=== PATIENT | male | born 1975 | race Asian ===

== ENCOUNTER 2018-01-01 12:11 | Inpatient (IN) | payer BC, OTHER, SELFPAY ==
[~2018-01-01] VITALS: Ht 180.3 cm; Wt 80.7 kg
[2018-01-01] MEDS ORDERED: Lidocaine 2% Visc 15ml soln ORAL ONE (12:45)
[2018-01-01] MEDS ORDERED: Mylanta II UD 30ml ORAL ONE (12:45)
[2018-01-01] MEDS ORDERED: NORCO 5-325 TA1 EACH ORAL (12:59)
[2018-01-01] MEDS ORDERED: OMEPRAZOLE40 M1 ORAL (12:59)
[2018-01-01] MEDS ORDERED: Morphine Sulfate 4mg/ml Inj IVP ONE (13:00)
--- NOTE | 2018-01-01 13:00 | Emergency Room Report ---
History of Present Illness General Chief Complaint: Abdominal Pain Source: Patient Present Illness HPI The patient states he has a history of gallstones and GERD. He states that around 5 AM this morning he woke up suddenly with severe right upper quadrant abdominal pain. He states that he has never had symptoms this severe. He does note that over the past month he has had intermittent "gallbladder attacks." He describes these episodes as right upper quadrant pain that is crampy and lasts for about a week but occurs intermittently. He states this has been constant since 5 AM this morning. He also feels nauseated. He denies vomiting. He denies fever or chills. He denies chest pain or shortness of breath. He has no other complaints. Allergies: Coded Allergies: No Known Allergies (Unverified , 03/28/14) Patient History Past Medical History: see triage record, GERD, other - cholelithiasis Social History: Denies: smoking, alcohol use, drug use Reviewed Nursing Documentation: PMH: Agreed; PSxH: Agreed Nursing Documentation-PMH Past Medical History: No History, Except For Hx Gastrointestinal Problems: Yes - gallstones, stomache ulcer Review of Systems All Other Systems: negative except mentioned in HPI Physical Exam Vital Signs Date Time Temp Pulse Resp B/P (MAP) Pulse Ox O2 Delivery O2 Flow Rate FiO2 01/01/18 12:15 97.5 75 19 155/98 98 Room Air 97.5 Sp02 EP Interpretation: reviewed, normal General Appearance: no apparent distress, alert, GCS 15, non-toxic Head: normocephalic, atraumatic Eyes: bilateral eye normal inspection, bilateral eye PERRL ENT: hearing grossly normal, normal pharynx, no angioedema, normal voice Neck: full range of motion, supple/symm/no masses Respiratory: chest non-tender, lungs clear, normal breath sounds, speaking full sentences Cardiovascular #1: regular rate, rhythm, no edema Gastrointestinal: normal bowel sounds, soft, non-distended, no guarding, no rebound, tenderness - TTP in the RUQ Rectal: deferred Musculoskeletal: back normal, gait/station normal, normal range of motion, non- tender Neurologic: alert, oriented x3, responsive, motor strength/tone normal, sensory intact, speech normal Psychiatric: judgement/insight normal, memory normal, mood/affect normal, no suicidal/homicidal ideation Skin: normal color, no rash, warm/dry, well hydrated Medical Decision Making Diagnostic Impression: Primary Impression: Biliary colic Additional Impression: Transaminitis ER Course This patient presents with biliary colic. The patient underwent ultrasound of the right upper quadrant is found to have a large gallstone. He was in severe pain on arrival and very uncomfortable. His laboratory workup identified a transaminitis. I am concerned he could have choledocholithiasis. Possibly, he could have had a temporary obstructed common bile duct that has since cleared, however, given the transaminitis and cholelithiasis and colicky pain I'm concerned that this condition could worsen and he could develop a cholangitis or cholecystitis. At this time, there is no biliary dilation or evidence of cholecystitis. Regardless, the patient will be admitted for further evaluation by gastroenterology and general surgery. Laboratory Tests Test 01/01/18 12:30 01/01/18 14:10 White Blood Count 8.2 K/UL (4.8-10.8) Red Blood Count 5.38 M/UL (4.70-6.10) Hemoglobin 16.7 G/DL (14.2-18.0) Hematocrit 50.6 % (42.0-52.0) Mean Corpuscular Volume 94 FL (80-99) Mean Corpuscular Hemoglobin 31.0 PG (27.0-31.0) Mean Corpuscular Hemoglobin Concent 32.9 G/DL (32.0-36.0) Red Cell Distribution Width 11.2 % (11.6-14.8) L Platelet Count 261 K/UL (150-450) Mean Platelet Volume 7.7 FL (6.5-10.1) Neutrophils (%) (Auto) 62.3 % (45.0-75.0) Lymphocytes (%) (Auto) 22.1 % (20.0-45.0) Monocytes (%) (Auto) 9.4 % (1.0-10.0) Eosinophils (%) (Auto) 5.0 % (0.0-3.0) H Basophils (%) (Auto) 1.3 % (0.0-2.0) Sodium Level 140 MMOL/L (136-145) Potassium Level 3.8 MMOL/L (3.5-5.1) Chloride Level 103 MMOL/L (98-107) Carbon Dioxide Level 25 MMOL/L (21-32) Anion Gap 12 mmol/L (5-15) Blood Urea Nitrogen 14 mg/dL (7-18) Creatinine 1.0 MG/DL (0.55-1.30) Estimate Glomerular Filtration Rate > 60 mL/min (>60) Glucose Level 114 MG/DL (74-106) H Calcium Level 9.4 MG/DL (8.5-10.1) Total Bilirubin 1.3 MG/DL (0.2-1.0) H Direct Bilirubin 0.5 MG/DL (0.0-0.3) H Aspartate Amino Transferase (AST) 203 U/L (15-37) H Alanine Aminotransferase (ALT) 207 U/L (12-78) H Alkaline Phosphatase 156 U/L (46-116) H Total Protein 8.2 G/DL (6.4-8.2) Albumin 4.1 G/DL (3.4-5.0) Globulin 4.1 g/dL Albumin/Globulin Ratio 1.0 (1.0-2.7) Lipase 347 U/L (73-393) Urine Color Yellow Urine Appearance Clear Urine pH 6 (4.5-8.0) Urine Specific [place] 1.010 (1.005-1.035) Urine Protein Negative (NEGATIVE) Urine Glucose (UA) Negative (NEGATIVE) Urine Ketones Negative (NEGATIVE) Urine Occult Blood Negative (NEGATIVE) Urine Nitrite Negative (NEGATIVE) Urine Bilirubin Negative (NEGATIVE) Urine Urobilinogen Normal MG/DL (0.0-1.0) Urine Leukocyte Esterase Negative (NEGATIVE) CT/MRI/US Diagnostic Results CT/MRI/US Diagnostic Results : Imaging Test Ordered: RUQ US Impression Prominent gallstone noted. Sonographic Leblanc's is negative. No wall thickening or pericholecystic fluid identified. CBD is 6.6 mm. The liver, demonstrated part of the pancreas, aorta and IVC, both kidneys, spleen appear unremarkable. There is no biliary ductal dilatation identified. Doppler evaluation of the main portal vein shows patency. There is no ascites. No hydronephrosis seen. Impression: Cholelithiasis Last Vital Signs Date Time Temp Pulse Resp B/P (MAP) Pulse Ox O2 Delivery O2 Flow Rate FiO2 01/01/18 12:15 97.5 75 19 155/98 98 Room Air 97.5 Disposition: ADMITTED INPATIENT Condition: Stable COLIANNO,ZAMZAM M D.O. January 01, 2018 13:00
[2018-01-01 13:08] LABS: BASOPHILS % (AUTO) 1.3 % (0.0-2.0); HEMATOCRIT 50.6 % (42.0-52.0); HEMOGLOBIN 16.7 G/DL (14.2-18.0); LYMPHOCYTES % (AUTO) 22.1 % (20.0-45.0); MEAN CORPUSCULAR VOLUME 94 FL (80-99); MONOCYTES % (AUTO) 9.4 % (1.0-10.0); NEUTROPHILS % (AUTO) 62.3 % (45.0-75.0); PLATELET COUNT 261 K/UL (150-450); RED BLOOD COUNT 5.38 M/UL (4.70-6.10); RED CELL DISTRIBUTION WIDTH 11.2 % (11.6-14.8); WHITE BLOOD COUNT 8.2 K/UL (4.8-10.8)
[2018-01-01 13:17] LABS: ANION GAP 12 mmol/L (5-15); BLOOD UREA NITROGEN 14 mg/dL (7-18); CALCIUM 9.4 MG/DL (8.5-10.1); CARBON DIOXIDE 25 MMOL/L (21-32); CHLORIDE 103 MMOL/L (98-107); POTASSIUM 3.8 MMOL/L (3.5-5.1); SODIUM 140 MMOL/L (136-145)
[2018-01-01 13:28] LABS: ALANINE AMINOTRANSFERASE 207 U/L (12-78); ALBUMIN 4.1 G/DL (3.4-5.0); ALKALINE PHOSPHATASE 156 U/L (46-116); ASPARTATE AMINO TRANSFERASE 203 U/L (15-37); BILIRUBIN,TOTAL 1.3 MG/DL (0.2-1.0)
[2018-01-01 13:30] LABS: BILIRUBIN,DIRECT 0.5 MG/DL (0.0-0.3)
[2018-01-01 14:00] VITALS: BP 117/71
--- NOTE | 2018-01-01 14:18 | Diagnostic Imaging Report ---
Indication:Abdominal pain Technique: Grayscale and duplex Doppler imaging of the abdomen performed. Comparison: None Findings: Prominent gallstone noted. Sonographic Leblanc's is negative. No wall thickening or pericholecystic fluid identified. CBD is 6.6 mm. The liver, demonstrated part of the pancreas, aorta and IVC, both kidneys, spleen appear unremarkable. There is no biliary ductal dilatation identified. Doppler evaluation of the main portal vein shows patency. There is no ascites. No hydronephrosis seen. Impression: Cholelithiasis
[2018-01-01 14:34] LABS: APPEARANCE,URINE CLEAR; BILIRUBIN, URINE NEGATIVE (NEGATIVE); GLUCOSE, URINE (UA) NEGATIVE (NEGATIVE); KETONES,URINE NEGATIVE (NEGATIVE); LEUKOCYTE ESTERASE ,URINE NEGATIVE (NEGATIVE); NITRITE,URINE NEGATIVE (NEGATIVE); PH,URINE 6 (4.5-8.0); PROTEIN,URINE NEGATIVE (NEGATIVE); UROBILINOGEN,URINE NORMAL MG/DL (0.0-1.0)
[2018-01-01 14:41] LABS: COLOR,URINE YELLOW
[2018-01-01 16:30] VITALS: BP 127/73
[2018-01-01] MEDS ORDERED: HYDROcodone/Acetamin 10/325 tab ORAL PRN (18:00)
[2018-01-01] MEDS ORDERED: Norco 5mg/325mg tab ORAL PRN (18:00)
[2018-01-01 20:00] VITALS: BP 122/71
--- NOTE | 2018-01-01 23:25 | History and Physical ---
History of Present Illness General Date patient seen: January 01, 2018 Time patient seen: 15:23 Reason for Hospitalization: Abdominal Pain Present Illness HPI 42 y/o male with a PMH of cholelithiasis presented to the ED for severe RUQ pain since this morning. He states that pain started suddenly and reports associated nausea but no emesis. Reports RUQ pain radiating to the back, intermittent in nature, and with a sharp sensation. In the ED, abdominal ultrasound was done which showed cholelithiasis but no CBD or obstruction. Patient's LFTs were also noted to be elevated. Per patient, he was diagnosed with cholelithiasis several years ago and has ever since had intermittent RUQ pain. He states that he did a home remedy with epsom salts to pass the gallstones on its own. He also states that had basic labwork done with his PCP several months ago and his LFTs were within normal limits at the time. Patient was also noted to have a HR of 50s. States that he does not know his baseline HR but does report that he used to exercise a great deal. Denies chest pain, sob , f/c, d/c.Denies alcohol or illicit drug use. Denies tobacco abuse. Allergies: Coded Allergies: No Known Allergies (Unverified , 03/28/14) Medication History Scheduled Omeprazole (Omeprazole), 40 MG ORAL DAILY, (Reported) Scheduled PRN Hydrocodone Bit/Acetaminophen 5-325* ([place] 5-325*), 1 TAB ORAL Q6H PRN for For Pain, (Reported) Patient History History Provided By: Patient Healthcare decision maker N Resuscitation status Full Code Advanced Directive on File Review of Systems All Other Systems: negative except mentioned in HPI Physical Exam General Appearance: alert, mild distress HEENT: normocephalic, atraumatic, PERRL, EOMI, no JVD Neck: non-tender, normal alignment, supple Respiratory/Chest: chest wall non-tender, lungs clear, normal breath sounds Cardiovascular/Chest: normal peripheral pulses, regular rhythm, bradycardia Abdomen: normal bowel sounds, soft, tender Extremities: normal range of motion, non-tender Skin Exam: normal pigmentation, warm/dry 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, no motor/sensory deficits, alert, oriented x 3 Last 24 Hour Vital Signs Date Time Temp Pulse Resp B/P (MAP) Pulse Ox O2 Delivery O2 Flow Rate FiO2 5/11/18 16:30 97.3 51 20 127/73 97 Room Air 97.3 01/01/18 16:00 53 16 115/62 98 Room Air 01/01/18 14:00 69 12 117/71 98 Room Air 01/01/18 13:36 97.5 01/01/18 13:04 97.5 01/01/18 12:15 97.5 75 19 155/98 98 Room Air 97.5 Laboratory Tests Test 01/01/18 12:30 01/01/18 14:10 White Blood Count 8.2 K/UL (4.8-10.8) Red Blood Count 5.38 M/UL (4.70-6.10) Hemoglobin 16.7 G/DL (14.2-18.0) Hematocrit 50.6 % (42.0-52.0) Mean Corpuscular Volume 94 FL (80-99) Mean Corpuscular Hemoglobin 31.0 PG (27.0-31.0) Mean Corpuscular Hemoglobin Concent 32.9 G/DL (32.0-36.0) Red Cell Distribution Width 11.2 % (11.6-14.8) L Platelet Count 261 K/UL (150-450) Mean Platelet Volume 7.7 FL (6.5-10.1) Neutrophils (%) (Auto) 62.3 % (45.0-75.0) Lymphocytes (%) (Auto) 22.1 % (20.0-45.0) Monocytes (%) (Auto) 9.4 % (1.0-10.0) Eosinophils (%) (Auto) 5.0 % (0.0-3.0) H Basophils (%) (Auto) 1.3 % (0.0-2.0) Sodium Level 140 MMOL/L (136-145) Potassium Level 3.8 MMOL/L (3.5-5.1) Chloride Level 103 MMOL/L (98-107) Carbon Dioxide Level 25 MMOL/L (21-32) Anion Gap 12 mmol/L (5-15) Blood Urea Nitrogen 14 mg/dL (7-18) Creatinine 1.0 MG/DL (0.55-1.30) Estimat Glomerular Filtration Rate > 60 mL/min (>60) Glucose Level 114 MG/DL (74-106) H Calcium Level 9.4 MG/DL (8.5-10.1) Total Bilirubin 1.3 MG/DL (0.2-1.0) H Direct Bilirubin 0.5 MG/DL (0.0-0.3) H Aspartate Amino Transf (AST/SGOT) 203 U/L (15-37) H Alanine Aminotransferase (ALT/SGPT) 207 U/L (12-78) H Alkaline Phosphatase 156 U/L (46-116) H Total Protein 8.2 G/DL (6.4-8.2) Albumin 4.1 G/DL (3.4-5.0) Globulin 4.1 g/dL Albumin/Globulin Ratio 1.0 (1.0-2.7) Lipase 347 U/L (73-393) Urine Color Yellow Urine Appearance Clear Urine pH 6 (4.5-8.0) Urine Specific [place] 1.010 (1.005-1.035) Urine Protein Negative (NEGATIVE) Urine Glucose (UA) Negative (NEGATIVE) Urine Ketones Negative (NEGATIVE) Urine Occult Blood Negative (NEGATIVE) Urine Nitrite Negative (NEGATIVE) Urine Bilirubin Negative (NEGATIVE) Urine Urobilinogen Normal MG/DL (0.0-1.0) Urine Leukocyte Esterase Negative (NEGATIVE) Height (Feet): 5 Height (Inches): 11.00 Weight (Pounds): 178 Medications Current Medications Medications (Trade) Dose Ordered Sig/Kyung Route PRN Reason Start Time Stop Time Status Last Admin Dose Admin Acetaminophen (Tylenol) 650 mg Q4H PRN ORAL Mild Pain/Temp > 100.5 01/01/18 18:00 01/31/18 17:59 Acetaminophen/ Hydrocodone Bitart ([place] 10/325) 1 tab Q4H PRN ORAL Severe Pain (Pain Scale 7-10) 01/01/18 18:00 01/08/18 17:59 Acetaminophen/ Hydrocodone Bitart ([place] 5/325) 1 tab Q4H PRN ORAL Moderate Pain (Pain Scale 4-6) 01/01/18 18:00 01/08/18 17:59 Ondansetron HCl (Zofran) 4 mg Q4H PRN IVP Nausea & Vomiting 01/01/18 18:00 01/31/18 17:59 Sodium Chloride 1,000 ml @ 75 mls/hr [id number] IV 5/11/18 18:00 01/31/18 17:59 01/01/18 18:19 Assessment/Plan Problem List: (1) Bradycardia ICD Codes: R00.1 - Bradycardia, unspecified SNOMED: 63800115 (2) Transaminitis ICD Codes: R74.0 - Nonspecific elevation of levels of transaminase and lactic acid dehydrogenase [LDH] SNOMED: 847801749, 150655951 (3) Cholelithiasis ICD Codes: K80.20 - Calculus of gallbladder without cholecystitis without obstruction SNOMED: 882879216 Status: stable Assessment/Plan - Admit to inpatient, transfer to tele given bradycardia - General surgery and GI consulted - check EKG - trend LFTs. check hepatitis panel - consider HIDA - CLD - IVF - pain control and supportive care - no abx at this time given no e/o cholecystitis DVT Prophylaxis: SCD Code Status: Full Hospital Classification Declaration: Based on this initial evaluation, and depending on the patient's clinical course, I anticipate that this patient will require hospitalization for 2-3 days for possible sx and close respiratory/ hemodynamic monitoring. Disposition: Once the patient is stable to leave the hospital, I anticipate the patient will likely be discharged to the following environment: home I spent 73 minutes on this patient's case, and 45 minutes were dedicated to counseling and/or care coordination. Discussed with patient/family, nursing staff, SW/CM, general surgery, and GI regarding clinical status, treatment course, and disposition planning. Time of note may not reflect time of encounter. Alannah Gamez NP January 01, 2018 23:25
[2018-01-02] VITALS: BP 116/66
[2018-01-02] MEDS ORDERED: Norco 5mg/325mg tab ORAL PRN (02:00)
[2018-01-02] MEDS ORDERED: HYDROcodone/Acetamin 10/325 tab ORAL PRN (02:00)
[2018-01-02 04:00] VITALS: BP 108/65
[2018-01-02 08:00] VITALS: BP 127/73
[2018-01-02 09:15] LABS: BASOPHILS % (AUTO) 1.5 % (0.0-2.0); EOSINOPHILS % (AUTO) 7.2 % (0.0-3.0); HEMATOCRIT 46.1 % (42.0-52.0); HEMOGLOBIN 15.4 G/DL (14.2-18.0); LYMPHOCYTES % (AUTO) 28.9 % (20.0-45.0); MEAN CORPUSCULAR VOLUME 95 FL (80-99); MONOCYTES % (AUTO) 12.1 % (1.0-10.0); NEUTROPHILS % (AUTO) 50.3 % (45.0-75.0); PLATELET COUNT 220 K/UL (150-450); RED BLOOD COUNT 4.85 M/UL (4.70-6.10); RED CELL DISTRIBUTION WIDTH 11.4 % (11.6-14.8)
--- NOTE | 2018-01-02 09:39 | Consultation ---
History of Present Illness General Date patient seen: January 02, 2018 Chief Complaint: Abdominal Pain Reason for Consultation: biliary colic Present Illness HPI 42 year old otherwise healthy male presented with acute worsening RUQ abdominal discomfort. States that he was first diagnosed with cholelithiasis 4 years ago after acute attack but was well for some time. recently began to have intermittent mild episodes with diet. yesterday had worsening pain and required ED evaluation given severity. states pain sharp/cramping epigastric RUQ pain with radiation to right upper pack. +nausea. no emesis. no fever or chills. since admission was given IV pain meds and improved. on admission noted to have elevated LFT's. ultrasound with cholelithiasis. Surgery called to evaluate. patient seen, chart reviewed, patient examined. Allergies: Coded Allergies: No Known Allergies (Unverified , 03/28/14) Medication History Scheduled Omeprazole (Omeprazole), 40 MG ORAL DAILY, (Reported) Scheduled PRN Hydrocodone Bit/Acetaminophen 5-325* ([place] 5-325*), 1 TAB ORAL Q6H PRN for For Pain, (Reported) Patient History History Provided By: Patient, Medical Record, PMD Healthcare decision maker N Resuscitation status Full Code Advanced Directive on File Past Medical/Surgical History Past Medical/Surgical History: (1) Acute alcoholic intoxication (2) Acute alcoholic intoxication (3) Transaminitis (4) Biliary colic (5) Cholelithiasis (6) Bradycardia Review of Systems All Other Systems: negative except mentioned in HPI Physical Exam General Appearance: no apparent distress, alert Lines, tubes and drains: peripheral HEENT: normocephalic, atraumatic, anicteric, mucous membranes moist, PERRL Neck: normal alignment, supple Respiratory/Chest: lungs clear, normal breath sounds, no respiratory distress, no accessory muscle use Cardiovascular/Chest: normal peripheral pulses, normal rate Abdomen: normal bowel sounds, non tender, soft, no organomegaly, no mass Extremities: normal range of motion, non-tender Skin Exam: normal pigmentation, warm/dry Neurologic: alert, oriented x 3 Last 24 Hour Vital Signs Date Time Temp Pulse Resp B/P (MAP) Pulse Ox O2 Delivery O2 Flow Rate FiO2 01/02/18 08:00 97.1 60 20 127/73 98 97.1 01/02/18 04:00 48 01/02/18 04:00 97.2 50 16 108/65 98 97.2 01/02/18 00:00 97.7 56 18 116/66 98 97.7 01/02/18 00:00 46 01/01/18 20:00 59 01/01/18 20:00 97.5 53 18 122/71 99 97.5 01/01/18 16:30 97.3 51 20 127/73 97 Room Air 97.3 01/01/18 16:00 53 16 115/62 98 Room Air 01/01/18 14:00 69 12 117/71 98 Room Air 01/01/18 13:36 97.5 01/01/18 13:04 97.5 01/01/18 12:15 97.5 75 19 155/98 98 Room Air 97.5 Intake and Output 01/01/18 01/02/18 19:00 07:00 Intake Total 1370 ml 240 ml Balance 1370 ml 240 ml Intake Oral 370 ml 240 ml IV Total 1000 ml # Voids 1 Laboratory Tests Test 01/01/18 12:30 01/01/18 14:10 01/02/18 08:25 White Blood Count 8.2 K/UL (4.8-10.8) 5.0 K/UL (4.8-10.8) Red Blood Count 5.38 M/UL (4.70-6.10) 4.85 M/UL (4.70-6.10) Hemoglobin 16.7 G/DL (14.2-18.0) 15.4 G/DL (14.2-18.0) Hematocrit 50.6 % (42.0-52.0) 46.1 % (42.0-52.0) Mean Corpuscular Volume 94 FL (80-99) 95 FL (80-99) Mean Corpuscular Hemoglobin 31.0 PG (27.0-31.0) 31.8 PG (27.0-31.0) H Mean Corpuscular Hemoglobin Concent 32.9 G/DL (32.0-36.0) 33.5 G/DL (32.0-36.0) Red Cell Distribution Width 11.2 % (11.6-14.8) L 11.4 % (11.6-14.8) L Platelet Count 261 K/UL (150-450) 220 K/UL (150-450) Mean Platelet Volume 7.7 FL (6.5-10.1) 7.3 FL (6.5-10.1) Neutrophils (%) (Auto) 62.3 % (45.0-75.0) 50.3 % (45.0-75.0) Lymphocytes (%) (Auto) 22.1 % (20.0-45.0) 28.9 % (20.0-45.0) Monocytes (%) (Auto) 9.4 % (1.0-10.0) 12.1 % (1.0-10.0) H Eosinophils (%) (Auto) 5.0 % (0.0-3.0) H 7.2 % (0.0-3.0) H Basophils (%) (Auto) 1.3 % (0.0-2.0) 1.5 % (0.0-2.0) Sodium Level 140 MMOL/L (136-145) Pending Potassium Level 3.8 MMOL/L (3.5-5.1) Pending Chloride Level 103 MMOL/L (98-107) Pending Carbon Dioxide Level 25 MMOL/L (21-32) Pending Anion Gap 12 mmol/L (5-15) Blood Urea Nitrogen 14 mg/dL (7-18) Pending Creatinine 1.0 MG/DL (0.55-1.30) Pending Estimat Glomerular Filtration Rate > 60 mL/min (>60) Pending Glucose Level 114 MG/DL (74-106) H Pending Calcium Level 9.4 MG/DL (8.5-10.1) Pending Total Bilirubin 1.3 MG/DL (0.2-1.0) H Pending Direct Bilirubin 0.5 MG/DL (0.0-0.3) H Aspartate Amino Transf (AST/SGOT) 203 U/L (15-37) H Pending Alanine Aminotransferase (ALT/SGPT) 207 U/L (12-78) H Pending Alkaline Phosphatase 156 U/L (46-116) H Pending Total Protein 8.2 G/DL (6.4-8.2) Pending Albumin 4.1 G/DL (3.4-5.0) Pending Globulin 4.1 g/dL Pending Albumin/Globulin Ratio 1.0 (1.0-2.7) Lipase 347 U/L (73-393) Urine Color Yellow Urine Appearance Clear Urine pH 6 (4.5-8.0) Urine Specific [place] 1.010 (1.005-1.035) Urine Protein Negative (NEGATIVE) Urine Glucose (UA) Negative (NEGATIVE) Urine Ketones Negative (NEGATIVE) Urine Occult Blood Negative (NEGATIVE) Urine Nitrite Negative (NEGATIVE) Urine Bilirubin Negative (NEGATIVE) Urine Urobilinogen Normal MG/DL (0.0-1.0) Urine Leukocyte Esterase Negative (NEGATIVE) Hepatitis A IgM Antibody Pending Hepatitis B Surface Antigen Pending Hepatitis B Core IgM Antibody Pending Hepatitis C Antibody Pending Height (Feet): 5 Height (Inches): 11.00 Weight (Pounds): 178 Medications Current Medications Medications (Trade) Dose Ordered Sig/Kyung Route PRN Reason Start Time Stop Time Status Last Admin Dose Admin Acetaminophen (Tylenol) 650 mg Q4H PRN ORAL Mild Pain/Temp > 100.5 01/02/18 02:00 01/31/18 17:59 Acetaminophen/ Hydrocodone Bitart ([place] 10/325) 1 tab Q4H PRN ORAL Severe Pain (Pain Scale 7-10) 01/02/18 02:00 01/08/18 17:59 Acetaminophen/ Hydrocodone Bitart ([place] 5/325) 1 tab Q4H PRN ORAL Moderate Pain (Pain Scale 4-6) 01/02/18 02:00 01/08/18 17:59 Ondansetron HCl (Zofran) 4 mg Q4H PRN IVP Nausea & Vomiting 01/02/18 02:00 01/31/18 17:59 Sodium Chloride 1,000 ml @ 75 mls/hr [id number] IV 01/01/18 23:30 01/31/18 17:59 01/02/18 00:26 Temazepam (Restoril) 7.5 mg HSPRN PRN ORAL Insomnia 01/01/18 23:45 01/08/18 23:44 01/02/18 00:25 Assessment/Plan Problem List: (1) Biliary colic Assessment & Plan: 42M biliary colic / symptomatic cholelithiasis. resolved since admission. afebrile, HD stable, exam improved. no n/v/f/c. states that he has been having more require attacks over the past few weeks and feels as if he has attack with each meal. -should have cholecystectomy soon. can be done elective is stable. -advance diet -if asymptomatic with diet can d/c home today -states he will follow up with PCP brie to have referral to surgeon so that he can schedule elective surgery soon -thank you for this consultation. ICD Codes: K80.50 - Calculus of bile duct without cholangitis or cholecystitis without obstruction SNOMED: 82799467, [id number] Status: stable Isma Poon January 02, 2018 09:39
[2018-01-02 09:47] LABS: ALANINE AMINOTRANSFERASE 508 U/L (12-78); ALBUMIN 3.5 G/DL (3.4-5.0); ALBUMIN/GLOBULIN RATIO 0.9 (1.0-2.7); ALKALINE PHOSPHATASE 170 U/L (46-116); ANION GAP 8 mmol/L (5-15); ASPARTATE AMINO TRANSFERASE 350 U/L (15-37); BILIRUBIN,TOTAL 2.5 MG/DL (0.2-1.0); BLOOD UREA NITROGEN 8 mg/dL (7-18); CALCIUM 8.8 MG/DL (8.5-10.1); CARBON DIOXIDE 29 MMOL/L (21-32); CHLORIDE 106 MMOL/L (98-107); CREATININE 0.9 MG/DL (0.55-1.30); POTASSIUM 3.6 MMOL/L (3.5-5.1); SODIUM 143 MMOL/L (136-145)
[2018-01-02 09:50] LABS: BILIRUBIN,DIRECT 0.9 MG/DL (0.0-0.3)
--- NOTE | 2018-01-02 10:17 | General Progress Note ---
Progress Note Progress Note Surgery: AM labs resulted. LFT's and t bili elevated. -NPO -IV fluids -IV Abx -MRCP to evaluate for choledocholithiasis -repeat AM labs -not ready for discharge as previously believed. had episode of biliary colic vs acute cholecystitis and exam improved but possibly choledocholithiasis now. Isma Poon January 02, 2018 10:17
--- NOTE | 2018-01-02 11:33 | General Progress Note ---
Assessment/Plan Status: stable Assessment/Plan Problem List: (1) Bradycardia with junctional rhythm ICD Codes: R00.1 - Bradycardia, unspecified SNOMED: 55507102 (2) Transaminitis ICD Codes: R74.0 - Nonspecific elevation of levels of transaminase and lactic acid dehydrogenase [LDH] SNOMED: 276516539, 795958706 (3) Cholelithiasis ICD Codes: K80.20 - Calculus of gallbladder without cholecystitis without obstruction - General surgery and GI consulted - check MRCP given rising LFTs - trend LFTs. check hepatitis panel - CLD, ADAT - IVF - pain control and supportive care - no abx at this time given no e/o cholecystitis DVT Prophylaxis: SCD Code Status: Full Hospital Classification Declaration: Based on this initial evaluation, and depending on the patient's clinical course, I anticipate that this patient will require hospitalization for 1-2 days for possible sx and close respiratory/ hemodynamic monitoring. Disposition: Once the patient is stable to leave the hospital, I anticipate the patient will likely be discharged to the following environment: home I spent 42 minutes on this patient's case, and 45 minutes were dedicated to counseling and/or care coordination. Discussed with patient/family, nursing staff, SW/CM, general surgery, and GI regarding clinical status, treatment course, and disposition planning. Time of note may not reflect time of encounter. Subjective Date patient seen: January 02, 2018 Time patient seen: 11:33 ROS Limited/Unobtainable: No Constitutional: Reports: no symptoms HEENT: Reports: no symptoms Cardiovascular: Reports: no symptoms Gastrointestinal/Abdominal: Reports: abdominal pain, nausea Genitourinary: Reports: no symptoms Neurologic/Psychiatric: Reports: no symptoms Endocrine: Reports: no symptoms Hematologic/Lymphatic: Reports: no symptoms Allergies: Coded Allergies: No Known Allergies (Unverified , 03/28/14) Subjective No acute o/n events Pain controlled. Some nausea but no emesis. Denies f/c, d/c, chest pain, SOB Objective Last 24 Hour Vital Signs Date Time Temp Pulse Resp B/P (MAP) Pulse Ox O2 Delivery O2 Flow Rate FiO2 01/02/18 08:00 97.1 60 20 127/73 98 97.1 01/02/18 04:00 48 01/02/18 04:00 97.2 50 16 108/65 98 97.2 01/02/18 00:00 97.7 56 18 116/66 98 97.7 01/02/18 00:00 46 01/01/18 20:00 59 01/01/18 20:00 97.5 53 18 122/71 99 97.5 01/01/18 16:30 97.3 51 20 127/73 97 Room Air 97.3 01/01/18 16:00 53 16 115/62 98 Room Air 01/01/18 14:00 69 12 117/71 98 Room Air 01/01/18 13:36 97.5 01/01/18 13:04 97.5 01/01/18 12:15 97.5 75 19 155/98 98 Room Air 97.5 Intake and Output 01/01/18 01/02/18 19:00 07:00 Intake Total 1370 ml 240 ml Balance 1370 ml 240 ml Intake Oral 370 ml 240 ml IV Total 1000 ml # Voids 1 Laboratory Tests 01/01/18 12:30: White Blood Count 8.2, Red Blood Count 5.38, Hemoglobin 16.7, Hematocrit 50.6, Mean Corpuscular Volume 94, Mean Corpuscular Hemoglobin 31.0, Mean Corpuscular Hemoglobin Concent 32.9, Red Cell Distribution Width 11.2L, Platelet Count 261, Mean Platelet Volume 7.7, Neutrophils (%) (Auto) 62.3, Lymphocytes (%) (Auto) 22.1, Monocytes (%) (Auto) 9.4, Eosinophils (%) (Auto) 5.0H, Basophils (%) (Auto ) 1.3, Sodium Level 140, Potassium Level 3.8, Chloride Level 103, Carbon Dioxide Level 25, Anion Gap 12, Blood Urea Nitrogen 14, Creatinine 1.0, Estimat Glomerular Filtration Rate > 60, Glucose Level 114H, Calcium Level 9.4, Total Bilirubin 1.3H, Direct Bilirubin 0.5H, Aspartate Amino Transf (AST/SGOT) 203H, Alanine Aminotransferase (ALT/SGPT) 207H, Alkaline Phosphatase 156H, Total Protein 8.2, Albumin 4.1, Globulin 4.1, Albumin/Globulin Ratio 1.0, Lipase 347 01/01/18 14:10: Urine Color Yellow, Urine Appearance Clear, Urine pH 6, Urine Specific [place] 1.010, Urine Protein Negative, Urine Glucose (UA) Negative, Urine Ketones Negative, Urine Occult Blood Negative, Urine Nitrite Negative, Urine Bilirubin Negative, Urine Urobilinogen Normal, Urine Leukocyte Esterase Negative 01/02/18 08:25: White Blood Count 5.0, Red Blood Count 4.85, Hemoglobin 15.4, Hematocrit 46.1, Mean Corpuscular Volume 95, Mean Corpuscular Hemoglobin 31.8H, Mean Corpuscular Hemoglobin Concent 33.5, Red Cell Distribution Width 11.4L, Platelet Count 220, Mean Platelet Volume 7.3, Neutrophils (%) (Auto) 50.3, Lymphocytes (%) (Auto) 28.9, Monocytes (%) (Auto) 12.1H, Eosinophils (%) (Auto) 7.2H, Basophils (%) ( Auto) 1.5, Sodium Level 143, Potassium Level 3.6, Chloride Level 106, Carbon Dioxide Level 29, Anion Gap 8, Blood Urea Nitrogen 8, Creatinine 0.9, Estimat Glomerular Filtration Rate > 60, Glucose Level 97, Calcium Level 8.8, Total Bilirubin 2.5H, Direct Bilirubin 0.9H, Aspartate Amino Transf (AST/SGOT) 350H, Alanine Aminotransferase (ALT/SGPT) 508H, Alkaline Phosphatase 170H, Total Protein 7.3, Albumin 3.5, Globulin 3.8, Albumin/Globulin Ratio 0.9L, Hepatitis A IgM Antibody [Pending], Hepatitis B Surface Antigen [Pending], Hepatitis B Core IgM Antibody [Pending], Hepatitis C Antibody [Pending] Height (Feet): 5 Height (Inches): 11.00 Weight (Pounds): 178 Objective General: alert, cooperative, no distress, appears stated age Head: normocephalic, without obvious abnormality, atraumatic Eyes: conjunctivae/corneas clear. PERRL, EOM's intact Throat: lips, mucosa, and tongue normal. MMM Neck: supple, symmetrical, trachea midline, and no JVD Lungs: clear to auscultation bilaterally Heart: regular rate and rhythm, S1, S2 normal, no murmur, click, rub or gallop Abdomen: soft, non-tender, non-distended, bowel sounds normal Extremities: extremities normal, atraumatic, no cyanosis or edema Pulses: 2+ and symmetric Skin: skin color, texture, turgor normal; no rashes or lesions Neurologic: grossly normal, no focal deficits Jez Gaspar M.D. January 02, 2018 11:33
[2018-01-02 12:00] VITALS: BP 129/75
--- NOTE | 2018-01-02 14:12 | Cardiac Electrophysiology PN ---
Subjective Subjective [id number] Objective Last 24 Hour Vital Signs Date Time Temp Pulse Resp B/P (MAP) Pulse Ox O2 Delivery O2 Flow Rate FiO2 01/02/18 12:00 97.8 53 20 129/75 98 97.8 01/02/18 08:00 97.1 60 20 127/73 98 97.1 01/02/18 04:00 48 01/02/18 04:00 97.2 50 16 108/65 98 97.2 01/02/18 00:00 97.7 56 18 116/66 98 97.7 01/02/18 00:00 46 01/01/18 20:00 59 01/01/18 20:00 97.5 53 18 122/71 99 97.5 01/01/18 16:30 97.3 51 20 127/73 97 Room Air 97.3 01/01/18 16:00 53 16 115/62 98 Room Air Intake and Output 01/01/18 01/02/18 19:00 07:00 Intake Total 1370 ml 240 ml Balance 1370 ml 240 ml Intake Oral 370 ml 240 ml IV Total 1000 ml # Voids 1 Laboratory Tests Test 01/02/18 08:25 White Blood Count 5.0 K/UL (4.8-10.8) Red Blood Count 4.85 M/UL (4.70-6.10) Hemoglobin 15.4 G/DL (14.2-18.0) Hematocrit 46.1 % (42.0-52.0) Mean Corpuscular Volume 95 FL (80-99) Mean Corpuscular Hemoglobin 31.8 PG (27.0-31.0) H Mean Corpuscular Hemoglobin Concent 33.5 G/DL (32.0-36.0) Red Cell Distribution Width 11.4 % (11.6-14.8) L Platelet Count 220 K/UL (150-450) Mean Platelet Volume 7.3 FL (6.5-10.1) Neutrophils (%) (Auto) 50.3 % (45.0-75.0) Lymphocytes (%) (Auto) 28.9 % (20.0-45.0) Monocytes (%) (Auto) 12.1 % (1.0-10.0) H Eosinophils (%) (Auto) 7.2 % (0.0-3.0) H Basophils (%) (Auto) 1.5 % (0.0-2.0) Sodium Level 143 MMOL/L (136-145) Potassium Level 3.6 MMOL/L (3.5-5.1) Chloride Level 106 MMOL/L (98-107) Carbon Dioxide Level 29 MMOL/L (21-32) Anion Gap 8 mmol/L (5-15) Blood Urea Nitrogen 8 mg/dL (7-18) Creatinine 0.9 MG/DL (0.55-1.30) Estimat Glomerular Filtration Rate > 60 mL/min (>60) Glucose Level 97 MG/DL (74-106) Calcium Level 8.8 MG/DL (8.5-10.1) Total Bilirubin 2.5 MG/DL (0.2-1.0) H Direct Bilirubin 0.9 MG/DL (0.0-0.3) H Aspartate Amino Transf (AST/SGOT) 350 U/L (15-37) H Alanine Aminotransferase (ALT/SGPT) 508 U/L (12-78) H Alkaline Phosphatase 170 U/L (46-116) H Total Protein 7.3 G/DL (6.4-8.2) Albumin 3.5 G/DL (3.4-5.0) Globulin 3.8 g/dL Albumin/Globulin Ratio 0.9 (1.0-2.7) L Hepatitis A IgM Antibody Pending Hepatitis B Surface Antigen Pending Hepatitis B Core IgM Antibody Pending Hepatitis C Antibody Pending uLis Solitario MD January 02, 2018 14:12
[2018-01-02 16:00] VITALS: BP 122/75
--- NOTE | 2018-01-02 16:55 | Cardiology Report ---
APPROVED REPORT EXAM: Two-dimensional and M-mode echocardiogram with Doppler and color Doppler. INDICATION Bradycardia M-Mode DIMENSIONS IVSd0.9 (0.7-1.1cm)Left Atrium (MM)3.8 (1.6-4.0cm) LVDd5.3 (3.5-5.6cm)Aortic Root2.8 (2.0-3.7cm) PWd1.0 (0.7-1.1cm)Aortic Cusp Exc.2.0 (1.5-2.0cm) LVDs3.9 (2.5-4.0cm) PWs1.3 cm Normal left ventricular chamber size, systolic function and wall motion. Left ventricular ejection fraction estimated to be 50-55%. No evidence of left ventricular hypertrophy. Small posterior pericardial effusion. Right cardiac chamber sizes are within normal limits. Mild left atrial enlargement by 2D. Focal aortic valve sclerosis with adequate cusp excursion. Thickened mitral valve leaflets with normal excursion. Mild mitral annulus and aortic root calcification. Pulmonic valve not well visualized. Normal tricuspid valve structure. IVC is normal in size and collapsible with respiration. A color flow and spectral Doppler study was performed and revealed: No aortic regurgitation. No mitral regurgitation. Normal mitral diastolic function. No tricuspid regurgitation.
[2018-01-02 20:00] VITALS: BP 132/74
--- NOTE | 2018-01-02 22:00 | Consultation ---
DATE OF CONSULTATION: 01/02/2018 CARDIOLOGY CONSULTATION CONSULTING PHYSICIAN: Luis Solitario M.D. REFERRING PHYSICIAN: Dandre Regan M.D. REASON FOR CONSULTATION: Bradycardia and junctional rhythm. HISTORY OF PRESENT ILLNESS: The patient is a 42-year-old gentleman with history of cholelithiasis, presented to the emergency room with severe right lower quadrant pain that has been going on for some time, but got worse in the last two to three days. The patient also was nauseous, but did not vomit. The pain radiated to his back and was intermittent. In the emergency room, ultrasound showed cholelithiasis, but no common bile duct obstruction. The patient's liver function tests were also elevated. The patient noted to be bradycardic with heart rates 40 in junctional rhythm. At that time, the patient was sleeping. The patient denies any syncope or presyncope. He says that he used to exercise a lot, but has not done in the last year due to his back pain. REVIEW OF SYSTEMS: His review of systems was negative other than what was mentioned in the history of present illness. PAST MEDICAL HISTORY: 1. Cholelithiasis. 2. History of back pain. MEDICATIONS AT HOME: Omeprazole and hydrocodone. PHYSICAL EXAMINATION: VITAL SIGNS: Blood pressure is 129/75, pulse is 53, respirations 18, and he is afebrile. HEAD AND NECK: Showed no JVD or carotid bruits. LUNGS: Clear. CARDIOVASCULAR: Shows regular S1 and S2 with no gallop or murmur. ABDOMEN: Soft. EXTREMITIES: No pitting edema. LABORATORY AND DIAGNOSTIC DATA: His telemetry strip showed junctional rhythm at a rate of 40 at 06:53 a.m. His 12-lead EKG showed sinus bradycardia, rate of 56. His labs showed white count of 5, hemoglobin 15.4 , hematocrit 46.1, and platelet count of 220. Sodium is 142, potassium 3.3, BUN of 8, creatinine 0.9, and glucose of 97. His AST and ALT increased from 203 to 350 and from 207 to 508. Alkaline phosphatase increased to 170. Total bilirubin increased to 2.5. ASSESSMENT AND PLAN: 1. Transient junctional rhythm and bradycardia. The patient is off of any sinus or AV kavita blocking agent. This could be due to being vagal due to abdominal pain due to cholecystitis. We will watch the patient on telemetry. The patient is off of any sinus or AV kavita agents. I will check a thyroid function test and echocardiogram as well. 2. Increased liver function tests and total bilirubin. The patient is NPO. MRCP is ordered to evaluate for cholelithiasis. Further evaluation by Dr. Poon from Surgery [facility] GI. Thank you very much, Dr. Regan, for allowing me to participate in the care of this patient. Please do not hesitate to contact me for any questions regarding my evaluation. Luis Solitario M.D. DR: MIGUEL A JOB#: [id number] CC:
[2018-01-03] VITALS: BP 140/76
[2018-01-03] MEDS ORDERED: Zolpidem 5mg tab ORAL PRN (00:45)
[2018-01-03 04:00] VITALS: BP 128/83
[2018-01-03 08:00] VITALS: BP 126/77
[2018-01-03 09:08] LABS: BASOPHILS % (AUTO) 1.1 % (0.0-2.0); EOSINOPHILS % (AUTO) 6.2 % (0.0-3.0); HEMATOCRIT 44.6 % (42.0-52.0); LYMPHOCYTES % (AUTO) 25.1 % (20.0-45.0); MEAN CORPUSCULAR VOLUME 95 FL (80-99); MONOCYTES % (AUTO) 7.8 % (1.0-10.0); NEUTROPHILS % (AUTO) 59.9 % (45.0-75.0); PLATELET COUNT 242 K/UL (150-450); RED BLOOD COUNT 4.71 M/UL (4.70-6.10); RED CELL DISTRIBUTION WIDTH 11.3 % (11.6-14.8); WHITE BLOOD COUNT 8.3 K/UL (4.8-10.8)
[2018-01-03 09:55] LABS: ALANINE AMINOTRANSFERASE 345 U/L (12-78); ALBUMIN 3.4 G/DL (3.4-5.0); ALBUMIN/GLOBULIN RATIO 0.9 (1.0-2.7); ALKALINE PHOSPHATASE 162 U/L (46-116); ANION GAP 10 mmol/L (5-15); ASPARTATE AMINO TRANSFERASE 116 U/L (15-37); BILIRUBIN,TOTAL 0.6 MG/DL (0.2-1.0); BLOOD UREA NITROGEN 13 mg/dL (7-18); CALCIUM 8.8 MG/DL (8.5-10.1); CARBON DIOXIDE 25 MMOL/L (21-32); CHLORIDE 105 MMOL/L (98-107); POTASSIUM 3.4 MMOL/L (3.5-5.1); SODIUM 140 MMOL/L (136-145)
[2018-01-03 12:00] VITALS: BP 123/79
--- NOTE | 2018-01-03 13:16 | General Surgery Progress Note ---
General Surgery-Progress Note Subjective Symptoms: improved, pain absent, tolerating diet, passing flatus, BM Additional Comments no acute events. comfortable. no n/v/f/c. tolerating diet. ambulatory. no pain. labs much improved. Objective Last 24 Hour Vital Signs Date Time Temp Pulse Resp B/P (MAP) Pulse Ox O2 Delivery O2 Flow Rate FiO2 01/03/18 12:00 97.9 55 18 123/79 98 Room Air 97.9 01/03/18 12:00 57 01/03/18 08:00 99.2 63 18 126/77 94 Room Air 99.2 01/03/18 08:00 61 01/03/18 04:00 97.2 66 18 128/83 97 Room Air 97.2 01/03/18 04:00 54 01/03/18 00:00 54 01/03/18 00:00 97.9 57 18 140/76 96 Room Air 97.9 01/02/18 20:00 98.4 59 20 132/74 94 Room Air 98.4 01/02/18 20:00 58 01/02/18 16:00 97.8 52 20 122/75 97 97.8 01/02/18 16:00 51 I&O Intake and Output 01/02/18 01/03/18 19:00 07:00 Intake Total 675 ml 985 ml Balance 675 ml 985 ml Intake Oral 240 ml IV Total 675 ml 745 ml # Voids 2 # Bowel Movements 1 Drains: none Cardiovascular: RSR Respiratory: clear Abdomen: soft, flat, non-tender, present bowel sounds Extremities: no edema, no tenderness, no cyanosis Laboratory Tests Test 01/03/18 08:30 White Blood Count 8.3 K/UL (4.8-10.8) # Red Blood Count 4.71 M/UL (4.70-6.10) Hemoglobin 15.0 G/DL (14.2-18.0) Hematocrit 44.6 % (42.0-52.0) Mean Corpuscular Volume 95 FL (80-99) Mean Corpuscular Hemoglobin 31.8 PG (27.0-31.0) H Mean Corpuscular Hemoglobin Concent 33.6 G/DL (32.0-36.0) Red Cell Distribution Width 11.3 % (11.6-14.8) L Platelet Count 242 K/UL (150-450) Mean Platelet Volume 7.8 FL (6.5-10.1) Neutrophils (%) (Auto) 59.9 % (45.0-75.0) Lymphocytes (%) (Auto) 25.1 % (20.0-45.0) Monocytes (%) (Auto) 7.8 % (1.0-10.0) Eosinophils (%) (Auto) 6.2 % (0.0-3.0) H Basophils (%) (Auto) 1.1 % (0.0-2.0) Sodium Level 140 MMOL/L (136-145) Potassium Level 3.4 MMOL/L (3.5-5.1) L Chloride Level 105 MMOL/L (98-107) Carbon Dioxide Level 25 MMOL/L (21-32) Anion Gap 10 mmol/L (5-15) Blood Urea Nitrogen 13 mg/dL (7-18) Creatinine 1.0 MG/DL (0.55-1.30) Estimat Glomerular Filtration Rate > 60 mL/min (>60) Glucose Level 125 MG/DL (74-106) H Calcium Level 8.8 MG/DL (8.5-10.1) Total Bilirubin 0.6 MG/DL (0.2-1.0) Aspartate Amino Transf (AST/SGOT) 116 U/L (15-37) H Alanine Aminotransferase (ALT/SGPT) 345 U/L (12-78) H Alkaline Phosphatase 162 U/L (46-116) H Total Protein 7.1 G/DL (6.4-8.2) Albumin 3.4 G/DL (3.4-5.0) Globulin 3.7 g/dL Albumin/Globulin Ratio 0.9 (1.0-2.7) L Amylase Level 91 U/L (25-115) Lipase 340 U/L (73-393) Thyroid Stimulating Hormone (TSH) 1.942 uiU/mL (0.358-3.740) Free Thyroxine 1.18 NG/DL (0.76-1.46) Plan Problems: (1) Biliary colic Assessment & Plan: 42M biliary colic / symptomatic cholelithiasis. resolved since admission. afebrile, HD stable, exam improved. no n/v/f/c. states that he has been having more require attacks over the past few weeks and feels as if he has attack with each meal. labs worsened yesterday and possible choledocholithiasis. MRCP ordered but cannot be done on weekend. fortunately today labs much improved. possible passing of stone or possible inflammation resolving. currently tolerating diet. no pain. labs much improved. -should have cholecystectomy soon. can be done elective is stable. -advance diet -d/c home from surgical standpoint -states he will follow up with PCP brie to have referral to surgeon so that he can schedule elective surgery soon -thank you for this consultation. Isma Poon January 03, 2018 13:16
--- NOTE | 2018-01-08 10:09 | Discharge Summary ---
Discharge Summary Hospital Course Date of Admission January 01, 2018 at 14:25 Date of Discharge January 03, 2018 at 14:45 Admitting Diagnosis biliary colic, cholelithiasis Reason for Hospitalization: biliary colic, cholelithiasis, concern for choledocholithasis HPI 42 y/o male with a PMH of cholelithiasis presented to the ED for severe RUQ pain since this morning. He states that pain started suddenly and reports associated nausea but no emesis. Reports RUQ pain radiating to the back, intermittent in nature, and with a sharp sensation. In the ED, abdominal ultrasound was done which showed cholelithiasis but no CBD or obstruction. Patient's LFTs were also noted to be elevated. Per patient, he was diagnosed with cholelithiasis several years ago and has ever since had intermittent RUQ pain. He states that he did a home remedy with epsom salts to pass the gallstones on its own. He also states that had basic labwork done with his PCP several months ago and his LFTs were within normal limits at the time. Patient was also noted to have a HR of 50s. States that he does not know his baseline HR but does report that he used to exercise a great deal. Denies chest pain, sob , f/c, d/c.Denies alcohol or illicit drug use. Denies tobacco abuse. Consultations Gastroenterology, Surgery Hospital Course Pt was admitted and seen by GI and surgery. LFTs worsened so MRCP ordered but unfortunately could not be done as it was the weekend. However, the next day, labs improved and pt tolerating diet with improvement in pain. Possibly pt passed stone or inflammation is resolving. Pt was recommended that he should have cholecystomy soon but can be done electively per surgery. Pt was HD stable , tolerating PO prior to discharge. Discharge physical exam General: alert, cooperative, no distress, appears stated age Head: normocephalic, without obvious abnormality, atraumatic Eyes: conjunctivae/corneas clear. PERRL, EOM's intact Throat: lips, mucosa, and tongue normal. MMM Neck: supple, symmetrical, trachea midline, and no JVD Lungs: clear to auscultation bilaterally Heart: regular rate and rhythm, S1, S2 normal, no murmur, click, rub or gallop Abdomen: soft, non-tender, non-distended, bowel sounds normal; no masses or organomegaly Extremities: extremities normal, atraumatic, no cyanosis or edema Pulses: 2+ and symmetric Skin: skin color, texture, turgor normal; no rashes or lesions Neurologic: grossly normal, no focal deficits Discharge Condition Upon Discharge: stable Discharge Disposition Patient was discharged to Home (01) Discharge Diagnoses: (1) Cholelithiasis (2) Bradycardia (3) Biliary colic (4) Elevated LFTs Jez Gaspar M.D. January 08, 2018 10:09
== END 2018-01-03 14:45 | disposition home or self-care (01) | DRG 446 ==
LOC: EMR 12:43 → 4E 14:25 → EDBEDREQ 14:47 → 2E 19:00
DX: K80.70 Calculus of gallbladder and bile duct without cholecystitis without obstruction (principal); R00.1 Bradycardia, unspecified; R74.0 Nonspecific elevation of levels of transaminase and lactic acid dehydrogenase [LDH]
CPT/HCPCS: 36415; 76700; 80053; 81003; 82150; 82248; 83690; 84439; 84443; 85025; 86705; 86709; 86803; 87340; 93005; 93306; 99285; J2405; J8499

== ENCOUNTER 2018-01-05 04:39 | Inpatient (IN) | payer OTHER ==
[~2018-01-05] VITALS: Ht 180.3 cm; Wt 81.6 kg
[~2018-01-05 04:39] MED LIST: NORCO 5-325 TA1 EACH ORAL; OMEPRAZOLE40 M1 ORAL
[2018-01-05] MEDS ORDERED: Morphine Sulfate 4mg/ml Inj IVP ONE (05:00)
--- NOTE | 2018-01-05 05:00 | Emergency Room Report ---
History of Present Illness General Chief Complaint: Abdominal Pain Source: Patient Present Illness HPI Patient presents with complaints of right upper abdominal pain reports that he is having gallbladder pain Patient reports that he has had this problem off and on for the last 4 years Patient was here last week had abnormal blood work initially was getting set for MRCP however patient's symptom improved Patient has increased nausea Denies any fevers or chills Denies any chest pain or shortness of breath Pain is 10 out of 10 Localized right upper quadrant some radiation to the right upper back area Allergies: Coded Allergies: No Known Allergies (Unverified , 03/28/14) Patient History Past Medical History: see triage record Pertinent Family History: none Reviewed Nursing Documentation: PMH: Agreed; PSxH: Agreed Nursing Documentation-PMH Hx Cardiac Problems: No Hx Cancer: No Hx Gastrointestinal Problems: Yes - gallstones Hx Neurological Problems: No Review of Systems All Other Systems: negative except mentioned in HPI Physical Exam Vital Signs Date Time Temp Pulse Resp B/P (MAP) Pulse Ox O2 Delivery O2 Flow Rate FiO2 01/05/18 04:41 97.8 73 16 141/97 96 Room Air 97.9 Sp02 EP Interpretation: reviewed, normal General Appearance: mild distress - In acute pain Head: normocephalic, atraumatic Eyes: bilateral eye PERRL, bilateral eye EOMI ENT: hearing grossly normal, normal pharynx, TMs + canals normal, uvula midline Neck: full range of motion, supple, no meningismus, no bony tend Respiratory: lungs clear, normal breath sounds, no rhonchi, no respiratory distress, no retraction, no accessory muscle use Cardiovascular #1: normal peripheral pulses, regular rate, rhythm, no edema, no gallop, no JVD, no murmur Gastrointestinal: normal bowel sounds, non tender - On palpation however patient subjectively points the right upper quadrant, soft, no mass, no organomegaly, non-distended, no guarding, no hernia, no pulsatile mass, no rebound Genitourinary: no CVA tenderness Musculoskeletal: normal inspection Neurologic: oriented x3, responsive, electric bath attendant III-XII nml as tested, motor strength/ tone normal, sensory intact Psychiatric: mood/affect normal Skin: normal color, no rash, warm/dry, palpation normal Lymphatic: normal inspection, no adenopathy Medical Decision Making Diagnostic Impression: Primary Impression: Gallstone pancreatitis Additional Impression: Cholecystitis ER Course With the history exam and presentation, multiple differentials considered, including but not limited to appendicitis, gastritis, cholecystitis, diverticulitis Patient had recent imaging performed therefore repeat was not done in the emergency room Patient however continued to have discomfort Blood work reveals elevated liver function tests with mildly elevated lipase Patient admitted for further inpatient care Imaging is ordered for inpatient follow-up General surgery and medicine notified Labs Test 01/05/18 05:15 01/06/18 04:15 White Blood Count 9.2 K/UL (4.8-10.8) 6.8 K/UL (4.8-10.8) Red Blood Count 5.38 M/UL (4.70-6.10) 4.72 M/UL (4.70-6.10) Hemoglobin 16.6 G/DL (14.2-18.0) 15.1 G/DL (14.2-18.0) Hematocrit 50.8 % (42.0-52.0) 45.1 % (42.0-52.0) Mean Corpuscular Volume 94 FL (80-99) 96 FL (80-99) Mean Corpuscular Hemoglobin 30.9 PG (27.0-31.0) 32.0 PG (27.0-31.0) Mean Corpuscular Hemoglobin Concent 32.7 G/DL (32.0-36.0) 33.4 G/DL (32.0-36.0) Red Cell Distribution Width 11.7 % (11.6-14.8) 11.7 % (11.6-14.8) Platelet Count 294 K/UL (150-450) 241 K/UL (150-450) Mean Platelet Volume 7.5 FL (6.5-10.1) 7.4 FL (6.5-10.1) Neutrophils (%) (Auto) 50.6 % (45.0-75.0) 40.6 % (45.0-75.0) Lymphocytes (%) (Auto) 34.6 % (20.0-45.0) 38.2 % (20.0-45.0) Monocytes (%) (Auto) 8.2 % (1.0-10.0) 11.1 % (1.0-10.0) Eosinophils (%) (Auto) 5.5 % (0.0-3.0) 8.6 % (0.0-3.0) Basophils (%) (Auto) 1.2 % (0.0-2.0) 1.4 % (0.0-2.0) Sodium Level 142 MMOL/L (136-145) 141 MMOL/L (136-145) Potassium Level 3.8 MMOL/L (3.5-5.1) 3.5 MMOL/L (3.5-5.1) Chloride Level 104 MMOL/L (98-107) 105 MMOL/L (98-107) Carbon Dioxide Level 31 MMOL/L (21-32) 30 MMOL/L (21-32) Anion Gap 7 mmol/L (5-15) 6 mmol/L (5-15) Blood Urea Nitrogen 14 mg/dL (7-18) 10 mg/dL (7-18) Creatinine 1.0 MG/DL (0.55-1.30) 1.0 MG/DL (0.55-1.30) Estimat Glomerular Filtration Rate > 60 mL/min (>60) > 60 mL/min (>60) Glucose Level 102 MG/DL (74-106) 113 MG/DL (74-106) Calcium Level 9.1 MG/DL (8.5-10.1) 9.3 MG/DL (8.5-10.1) Total Bilirubin 0.4 MG/DL (0.2-1.0) 0.7 MG/DL (0.2-1.0) Aspartate Amino Transf (AST/SGOT) 74 U/L (15-37) 54 U/L (15-37) Alanine Aminotransferase (ALT/SGPT) 262 U/L (12-78) 189 U/L (12-78) Alkaline Phosphatase 150 U/L (46-116) 120 U/L (46-116) Total Protein 8.2 G/DL (6.4-8.2) 6.8 G/DL (6.4-8.2) Albumin 4.1 G/DL (3.4-5.0) 3.3 G/DL (3.4-5.0) Globulin 4.1 g/dL 3.5 g/dL Albumin/Globulin Ratio 1.0 (1.0-2.7) 0.9 (1.0-2.7) Lipase 398 U/L (73-393) 182 U/L (73-393) Last Vital Signs Date Time Temp Pulse Resp B/P (MAP) Pulse Ox O2 Delivery O2 Flow Rate FiO2 01/05/18 04:41 97.8 73 16 141/97 96 Room Air 97.9 Status: improved Disposition: ADMITTED INPATIENT Condition: Serious Esmer Burden DO January 05, 2018 04:59
[2018-01-05 05:29] LABS: BASOPHILS % (AUTO) 1.2 % (0.0-2.0); EOSINOPHILS % (AUTO) 5.5 % (0.0-3.0); HEMATOCRIT 50.8 % (42.0-52.0); HEMOGLOBIN 16.6 G/DL (14.2-18.0); LYMPHOCYTES % (AUTO) 34.6 % (20.0-45.0); MEAN CORPUSCULAR VOLUME 94 FL (80-99); MONOCYTES % (AUTO) 8.2 % (1.0-10.0); NEUTROPHILS % (AUTO) 50.6 % (45.0-75.0); PLATELET COUNT 294 K/UL (150-450); RED BLOOD COUNT 5.38 M/UL (4.70-6.10); RED CELL DISTRIBUTION WIDTH 11.7 % (11.6-14.8); WHITE BLOOD COUNT 9.2 K/UL (4.8-10.8)
[2018-01-05] MEDS ORDERED: Morphine Sulfate 10mg/ml Inj IVP ONE (05:30)
[2018-01-05 05:44] LABS: ANION GAP 7 mmol/L (5-15); BLOOD UREA NITROGEN 14 mg/dL (7-18); CALCIUM 9.1 MG/DL (8.5-10.1); CARBON DIOXIDE 31 MMOL/L (21-32); CHLORIDE 104 MMOL/L (98-107); POTASSIUM 3.8 MMOL/L (3.5-5.1); SODIUM 142 MMOL/L (136-145)
[2018-01-05 05:48] LABS: ALANINE AMINOTRANSFERASE 262 U/L (12-78); ALBUMIN 4.1 G/DL (3.4-5.0); ALKALINE PHOSPHATASE 150 U/L (46-116); BILIRUBIN,TOTAL 0.4 MG/DL (0.2-1.0)
[2018-01-05 06:00] LABS: ASPARTATE AMINO TRANSFERASE 74 U/L (15-37)
[2018-01-05 06:13] VITALS: BP 141/97
[2018-01-05 06:49] VITALS: BP 147/88
[2018-01-05 08:00] VITALS: BP 108/71
[2018-01-05] MEDS ORDERED: Morphine Sulfate 4mg/ml Inj IVP PRN ×3 (09:30)
[2018-01-05] MEDS ORDERED: D5 1/2NS 1,000 ML IV SCH (10:00)
--- NOTE | 2018-01-05 11:53 | Diagnostic Imaging Report ---
Indication: Abdominal pain, history of cholelithiasis Technique: Coronal and axial single shot fast spin-echo breath-hold, axial T2 FRFSE, 2-D thick slab MRCP, AXIAL 2-D FIESTA fat saturated, axial 3-D dual echo breath-hold, water weighted axial LAVA FLEX, revealed 3-D MRCP images were obtained of the abdomen. MIP reconstructions were generated of the bile ducts Comparison: Made to abdominal ultrasound dated 01/01/2018 Findings: 2 filling defects, consistent with gallstones, are seen in the gallbladder lumen. There is no gallbladder wall thickening nor pericholecystic fluid. The bile ducts are normal in caliber. On the single shot fast spin echo T2 images, there are questionably small filling defects within the common bile duct. However, these are not corroborated on other sequences, including the MRCP sequences. Normal caliber bile ducts. No significant pancreatic edema or peripancreatic fluid or edema. The liver, spleen, adrenals, kidneys are unremarkable. No retroperitoneal mass or adenopathy demonstrated. Impression: Cholelithiasis. No definite evidence of choledocholithiasis. No biliary ductal dilatation No significant pancreatic or peripancreatic abnormality demonstrated. Normal caliber pancreatic duct
[2018-01-05 12:00] VITALS: BP 117/78
--- NOTE | 2018-01-05 14:17 | Consultation ---
History of Present Illness General Date patient seen: January 05, 2018 Chief Complaint: Abdominal Pain Reason for Consultation: gallstone pancreatitis Present Illness HPI 42M with history of symptomatic cholelithiasis and recent admission for acute cholecystitis presents with recurrent episode and now gallstone pancreatitis. patient has had long history of symptomatic cholelithiasis and multiple prior hospital visits. has been awaiting outpatient surgery referral for cholecystectomy. please refer to my prior notes from recent admission. was discharged home in stable condition now presents with gallstone pancreatitis. afebrile, HD stable, pain in RUQ with radiation to back. surgery called to evaluate. Allergies: Coded Allergies: No Known Allergies (Unverified , 03/28/14) Medication History Scheduled Omeprazole (Omeprazole), 40 MG ORAL DAILY, (Reported) Scheduled PRN Hydrocodone Bit/Acetaminophen 5-325* ([place] 5-325*), 1 TAB ORAL Q6H PRN for For Pain, (Reported) Patient History History Provided By: Patient, Medical Record, PMD Healthcare decision maker Resuscitation status Advanced Directive on File Past Medical/Surgical History Past Medical/Surgical History: (1) Gallstone pancreatitis (2) Cholelithiasis (3) Bradycardia (4) Acute alcoholic intoxication (5) Acute alcoholic intoxication (6) Cholecystitis Review of Systems Constitutional: Denies: no symptoms, see HPI, chills, sweats, fever, malaise, weakness, other Eye: Denies: no symptoms, see HPI, eye pain, blurred vision, tearing, double vision, nose pain, nose congestion, acuity changes, discharge, other Respiratory: Denies: no symptoms, see HPI, cough, orthopnea, shortness of breath, stridor, wheezing, GARVIN, sputum, other Cardiovascular: Denies: no symptoms, see HPI, chest pain, edema, palpitations, syncope, PND, other Gastrointestinal: Reports: abdominal pain Genitourinary: Denies: no symptoms, see HPI, discharge, dysuria, frequency, hematuria, pain, retention, incontinence, urgency, vag bleed/dc, other Musculoskeletal: Reports: back pain; Denies: no symptoms, see HPI, gout, joint pain, joint swelling, muscle pain, muscle stiffness, other Skin: Denies: no symptoms, see HPI, rash, change in color, change in hair/nails , dryness, lesions, other Psychiatric: Denies: no symptoms, see HPI, prior hx, anxiety, depressed feelings, emotional problems, SI, HI, hallucinations, other Neurological: Denies: no symptoms, see HPI, headache, numbness, paresthesia, seizure, tingling, tremors, focal weakness, syncope, dizziness, other Endocrine: Denies: no symptoms, see HPI, excessive sweating, flushing, intolerance to temperature, increased thirst, increased urine, unexplained weight loss, other Hematologic/Lymphatic: Denies: no symptoms, see HPI, anemia, blood clots, easy bleeding, easy bruising, swollen glands, diathesis, other All Other Systems: negative except mentioned in HPI Physical Exam General Appearance: WD/WN, no apparent distress, alert Lines, tubes and drains: peripheral HEENT: normocephalic, atraumatic, anicteric, mucous membranes moist, PERRL Neck: non-tender, normal alignment, supple Respiratory/Chest: lungs clear, normal breath sounds, no respiratory distress, no accessory muscle use Cardiovascular/Chest: normal peripheral pulses, normal rate Abdomen: normal bowel sounds, soft, no organomegaly, no mass, tender Extremities: normal range of motion, non-tender, normal inspection Skin Exam: normal pigmentation, warm/dry Neurologic: alert, oriented x 3 Last 24 Hour Vital Signs Date Time Temp Pulse Resp B/P (MAP) Pulse Ox O2 Delivery O2 Flow Rate FiO2 01/05/18 12:00 98.0 54 17 117/78 97 98.0 01/05/18 08:00 97.2 60 18 108/71 98 97.2 01/05/18 06:49 98.1 65 18 147/88 98 98.1 01/05/18 06:13 98.0 89 18 128/89 100 Room Air 01/05/18 06:13 208.0 16 141/97 96 Room Air 208.0 01/05/18 05:36 97.8 01/05/18 04:41 97.8 73 16 141/97 96 Room Air 97.9 Intake and Output 01/04/18 01/05/18 19:00 07:00 Intake Total 0 ml Balance 0 ml Intake Oral 0 ml Laboratory Tests Test 01/05/18 05:15 White Blood Count 9.2 K/UL (4.8-10.8) Red Blood Count 5.38 M/UL (4.70-6.10) Hemoglobin 16.6 G/DL (14.2-18.0) Hematocrit 50.8 % (42.0-52.0) Mean Corpuscular Volume 94 FL (80-99) Mean Corpuscular Hemoglobin 30.9 PG (27.0-31.0) Mean Corpuscular Hemoglobin Concent 32.7 G/DL (32.0-36.0) Red Cell Distribution Width 11.7 % (11.6-14.8) Platelet Count 294 K/UL (150-450) Mean Platelet Volume 7.5 FL (6.5-10.1) Neutrophils (%) (Auto) 50.6 % (45.0-75.0) Lymphocytes (%) (Auto) 34.6 % (20.0-45.0) Monocytes (%) (Auto) 8.2 % (1.0-10.0) Eosinophils (%) (Auto) 5.5 % (0.0-3.0) H Basophils (%) (Auto) 1.2 % (0.0-2.0) Sodium Level 142 MMOL/L (136-145) Potassium Level 3.8 MMOL/L (3.5-5.1) Chloride Level 104 MMOL/L (98-107) Carbon Dioxide Level 31 MMOL/L (21-32) Anion Gap 7 mmol/L (5-15) Blood Urea Nitrogen 14 mg/dL (7-18) Creatinine 1.0 MG/DL (0.55-1.30) Estimat Glomerular Filtration Rate > 60 mL/min (>60) Glucose Level 102 MG/DL (74-106) Calcium Level 9.1 MG/DL (8.5-10.1) Total Bilirubin 0.4 MG/DL (0.2-1.0) Aspartate Amino Transf (AST/SGOT) 74 U/L (15-37) H Alanine Aminotransferase (ALT/SGPT) 262 U/L (12-78) H Alkaline Phosphatase 150 U/L (46-116) H Total Protein 8.2 G/DL (6.4-8.2) Albumin 4.1 G/DL (3.4-5.0) Globulin 4.1 g/dL Albumin/Globulin Ratio 1.0 (1.0-2.7) Lipase 398 U/L (73-393) H Height (Feet): 5 Height (Inches): 11.00 Weight (Pounds): 180 Medications Current Medications Medications (Trade) Dose Ordered Sig/Kyung Route PRN Reason Start Time Stop Time Status Last Admin Dose Admin Dextrose/Sodium Chloride 1,000 ml @ 75 mls/hr [id number] IV 01/05/18 10:00 02/04/18 09:59 01/05/18 10:00 Morphine Sulfate (Morphine Sulfate) 1 mg Q4H PRN IVP Mild Pain (Pain Scale 1-3) 01/05/18 09:30 01/12/18 09:29 Morphine Sulfate (Morphine Sulfate) 4 mg Q4H PRN IVP Moderate Pain (Pain Scale 4-6) 01/05/18 09:30 01/12/18 09:29 01/05/18 09:38 Morphine Sulfate (Morphine Sulfate) 6 mg Q4H PRN IVP Severe Pain (Pain Scale 7-10) 01/05/18 09:30 01/12/18 09:29 Ondansetron HCl (Zofran) 4 mg Q4H PRN IVP Nausea & Vomiting 01/05/18 10:00 02/04/18 09:59 Assessment/Plan Problem List: (1) Gallstone pancreatitis Assessment & Plan: 42M known history of cholelithiasis presented with gallstone pancreatitis. elevated lfts/lipase MRCP ordered and without obstructing stone that could be noted. possible defects vs artifact. should have cholecystectomy once pancreatitis resolves. fortunately clinically improving -will schedule for cholecystectomy with IOC tomorrow -AM labs -NPO -IV fluids -Consent ICD Codes: K85.10 - Biliary acute pancreatitis without necrosis or infection SNOMED: 53660272 Status: stable Isma Poon January 05, 2018 14:17
--- NOTE | 2018-01-05 14:18 | Pre-Procedure Note/Attestation ---
Pre-Procedure Note/Attestation Complete Prior to Procedure Planned Procedure: not applicable Procedure Narrative: laparoscopic cholecystectomy, possible open, possible intraoperative cholangiogram Indications for Procedure Pre-Operative Diagnosis: gallstone pancreatitis Attestation I attest that I discussed the nature of the procedure; its benefits; risks and complications; and alternatives (and the risks and benefits of such alternatives ), prior to the procedure, with the patient (or the patient's legal medical field representative). I attest that, if there was a reasonable possibility of needing a blood transfusion, the patient (or the patient's legal medical field representative) was given the [facility] standardized written summary, pursuant to the [place] Blood Safety Act ([place] Health and Safety Code # 1645, as amended). I attest that I re-evaluated the patient just prior to the surgery and that there has been no change in the patient's H&P, except as documented below: Isma Poon January 05, 2018 14:17
[2018-01-05] MEDS: D5 1/2NS 1,000 ML IV SCH ×2 (14:30→22:42)
--- NOTE | 2018-01-05 15:02 | GI Initial Consult Note ---
History of Present Illness General Date patient seen: January 05, 2018 Time patient seen: 14:00 Reason for Hospitalization: Abdominal Pain Referring physician: LEWIS GORE Reason for Consultation: gallstone pancreatitis Present Illness HPI Patient presents with complaints of right upper abdominal pain reports that he is having gallbladder pain Patient reports that he has had this problem off and on for the last 4 years Patient was here last week had abnormal blood work initially was getting set for MRCP however patient's symptom improved Patient has increased nausea Denies any fevers or chills Denies any chest pain or shortness of breath Pain is 10 out of 10 Localized right upper quadrant some radiation to the right upper back area GI consulted for abdominal pain. Pt seen, awake A&Ox4 NAD with no active s/sx of N/V/D. MRCP was performed today to r/o out possibility of choledocholithiasis. Reviewed to be negative. Pt is scheduled for lap alberta today. Plan of care discussed with patient. Labs reviewed. No history of endoscopy / colonoscopy. Home Meds Reported Medications Hydrocodone Bit/Acetaminophen 5-325* ([place] 5-325*) 1 Each Tablet, 1 TAB ORAL Q6H PRN for For Pain, #10 TAB 0 Refills 01/01/18 Omeprazole (OMEPRAZOLE) 40 Mg Capsule.dr, 40 MG ORAL DAILY, CAP 01/01/18 Med list reviewed/reconciled: Yes Allergies: Coded Allergies: No Known Allergies (Unverified , 03/28/14) Patient History History Provided By: Patient, Medical Record PMH Narrative Past Medical History: see triage record Pertinent Family History: none Reviewed Nursing Documentation: PMH: Agreed; PSxH: Agreed Nursing Documentation-PMH Hx Cardiac Problems: No Hx Cancer: No Hx Gastrointestinal Problems: Yes - gallstones Hx Neurological Problems: No Social History: Denies: smoking, alcohol use, drug use, other Review of Systems All Other Systems: negative except mentioned in HPI Physical Exam Vital Signs Date Time Temp Pulse Resp B/P (MAP) Pulse Ox O2 Delivery O2 Flow Rate FiO2 01/05/18 04:41 97.8 73 16 141/97 96 Room Air 97.9 Sp02 EP Interpretation: reviewed, normal Labs Laboratory Tests Test 01/05/18 05:15 White Blood Count 9.2 K/UL (4.8-10.8) Red Blood Count 5.38 M/UL (4.70-6.10) Hemoglobin 16.6 G/DL (14.2-18.0) Hematocrit 50.8 % (42.0-52.0) Mean Corpuscular Volume 94 FL (80-99) Mean Corpuscular Hemoglobin 30.9 PG (27.0-31.0) Mean Corpuscular Hemoglobin Concent 32.7 G/DL (32.0-36.0) Red Cell Distribution Width 11.7 % (11.6-14.8) Platelet Count 294 K/UL (150-450) Mean Platelet Volume 7.5 FL (6.5-10.1) Neutrophils (%) (Auto) 50.6 % (45.0-75.0) Lymphocytes (%) (Auto) 34.6 % (20.0-45.0) Monocytes (%) (Auto) 8.2 % (1.0-10.0) Eosinophils (%) (Auto) 5.5 % (0.0-3.0) H Basophils (%) (Auto) 1.2 % (0.0-2.0) Sodium Level 142 MMOL/L (136-145) Potassium Level 3.8 MMOL/L (3.5-5.1) Chloride Level 104 MMOL/L (98-107) Carbon Dioxide Level 31 MMOL/L (21-32) Anion Gap 7 mmol/L (5-15) Blood Urea Nitrogen 14 mg/dL (7-18) Creatinine 1.0 MG/DL (0.55-1.30) Estimat Glomerular Filtration Rate > 60 mL/min (>60) Glucose Level 102 MG/DL (74-106) Calcium Level 9.1 MG/DL (8.5-10.1) Total Bilirubin 0.4 MG/DL (0.2-1.0) Aspartate Amino Transf (AST/SGOT) 74 U/L (15-37) H Alanine Aminotransferase (ALT/SGPT) 262 U/L (12-78) H Alkaline Phosphatase 150 U/L (46-116) H Total Protein 8.2 G/DL (6.4-8.2) Albumin 4.1 G/DL (3.4-5.0) Globulin 4.1 g/dL Albumin/Globulin Ratio 1.0 (1.0-2.7) Lipase 398 U/L (73-393) H General Appearance: well appearing, no apparent distress, alert Head: normocephalic EENT: PERRL/EOMI, normal ENT inspection Neck: supple Respiratory: normal breath sounds, no respiratory distress Cardiovascular: normal rate Gastrointestinal: normal inspection, non tender, soft, normal bowel sounds, non -distended Rectal: deferred Genitourinary: deferred Musculoskeletal: normal inspection, back normal Neurologic: normal inspection, alert, oriented x3, responsive Psychiatric: normal inspection, judgement/insight normal, memory normal Skin: normal inspection, normal color, no rash, warm/dry, palpation normal, well hydrated Lymphatic: normal inspection, no adenopathy Current Medications Current Medications Medications (Trade) Dose Ordered Sig/Kyung Route PRN Reason Start Time Stop Time Status Last Admin Dose Admin Dextrose/Sodium Chloride 1,000 ml @ 125 mls/hr Q8H IV 01/05/18 14:30 02/04/18 14:29 Morphine Sulfate (Morphine Sulfate) 1 mg Q4H PRN IVP Mild Pain (Pain Scale 1-3) 01/05/18 09:30 01/12/18 09:29 Morphine Sulfate (Morphine Sulfate) 4 mg Q4H PRN IVP Moderate Pain (Pain Scale 4-6) 01/05/18 09:30 01/12/18 09:29 01/05/18 09:38 Morphine Sulfate (Morphine Sulfate) 6 mg Q4H PRN IVP Severe Pain (Pain Scale 7-10) 01/05/18 09:30 01/12/18 09:29 Ondansetron HCl (Zofran) 4 mg Q4H PRN IVP Nausea & Vomiting 01/05/18 10:00 02/04/18 09:59 GI: Plan Problems: (1) Cholecystitis (2) Cholelithiasis (3) Gallstone pancreatitis Plan MRCP reviewed >> Cholelithiasis. No definite evidence of choledocholithiasis. No biliary ductal dilatation elevated lipase Patient scheduled for Laparoscopic cholecystectomy today. maintain NPO + IVFs pain mgmt will follow for any post operative N/V. ppi d/w with patient at bedside fu labs Discussed with Dr. Otto. Thank you for this patient referral, we will follow. The patient was seen and examined at bedside and all new and available data was reviewed in the patients chart. I agree with the above findings, impression and plan. (Patient seen earlier today. Signature stamp does not reflect patient encounter time.). - MD Yareli Heart AnhMargaret BARTLETT January 05, 2018 15:02
--- NOTE | 2018-01-05 15:40 | Anethesia Preoperative Eval ---
Anesthesia Pre-op PMH/ROS General Date of Evaluation: January 05, 2018 Time of Evaluation: 17:55 Anesthesiologist: Chris ASA Score: ASA 2 Mallampati Score Class I : Soft palate, uvula, fauces, pillars visible Class II: Soft palate, uvula, fauces visible Class III: Soft palate, base of uvula visible Class IV: Only hard plate visible Mallampati Classification: Class II Surgeon: Cleve Diagnosis: Abd Pain Surgical Procedure: Laparoscopic Cholecystectomy with IOC Anesthesia History: none Family History: no anesthesia problems Allergies: Coded Allergies: No Known Allergies (Unverified , 03/28/14) Medications: see eMAR Past Medical History Cardiovascular: Reports: HTN Gastrointestinal/Genitourinary: Reports: other - Ulcer , Gallstones Anesthesia Pre-op Phys. Exam Physician Exam Last Vital Signs Date Time Temp Pulse Resp B/P (MAP) Pulse Ox O2 Delivery O2 Flow Rate FiO2 01/05/18 12:00 98.0 54 17 117/78 97 98.0 01/05/18 06:13 Room Air Constitutional: NAD Neurologic: CN 2-12 intact Cardiovascular: RRR Respiratory: CTA Gastrointestinal: S/NT/ND Airway Exam Mallampati Score: Class II MO: full ROM: full Teeth: intact Anesthesia Pre-op A/P Labs Hematology Test 01/05/18 05:15 White Blood Count 9.2 K/UL (4.8-10.8) Red Blood Count 5.38 M/UL (4.70-6.10) Hemoglobin 16.6 G/DL (14.2-18.0) Hematocrit 50.8 % (42.0-52.0) Mean Corpuscular Volume 94 FL (80-99) Mean Corpuscular Hemoglobin 30.9 PG (27.0-31.0) Mean Corpuscular Hemoglobin Concent 32.7 G/DL (32.0-36.0) Red Cell Distribution Width 11.7 % (11.6-14.8) Platelet Count 294 K/UL (150-450) Mean Platelet Volume 7.5 FL (6.5-10.1) Neutrophils (%) (Auto) 50.6 % (45.0-75.0) Lymphocytes (%) (Auto) 34.6 % (20.0-45.0) Monocytes (%) (Auto) 8.2 % (1.0-10.0) Eosinophils (%) (Auto) 5.5 % (0.0-3.0) H Basophils (%) (Auto) 1.2 % (0.0-2.0) Chemistry Test 01/05/18 05:15 Sodium Level 142 MMOL/L (136-145) Potassium Level 3.8 MMOL/L (3.5-5.1) Chloride Level 104 MMOL/L (98-107) Carbon Dioxide Level 31 MMOL/L (21-32) Anion Gap 7 mmol/L (5-15) Blood Urea Nitrogen 14 mg/dL (7-18) Creatinine 1.0 MG/DL (0.55-1.30) Estimat Glomerular Filtration Rate > 60 mL/min (>60) Glucose Level 102 MG/DL (74-106) Calcium Level 9.1 MG/DL (8.5-10.1) Total Bilirubin 0.4 MG/DL (0.2-1.0) Aspartate Amino Transf (AST/SGOT) 74 U/L (15-37) H Alanine Aminotransferase (ALT/SGPT) 262 U/L (12-78) H Alkaline Phosphatase 150 U/L (46-116) H Total Protein 8.2 G/DL (6.4-8.2) Albumin 4.1 G/DL (3.4-5.0) Globulin 4.1 g/dL Albumin/Globulin Ratio 1.0 (1.0-2.7) Lipase 398 U/L (73-393) H Risk Assessment & Plan Assessment: ASA 2 Plan: GA Pre-Antibiotics Drug: Dileep Mann MD January 05, 2018 15:40
[2018-01-05 16:00] VITALS: BP 112/73
[2018-01-05 20:16] VITALS: BP 108/69
[2018-01-05] MEDS ORDERED: TraZODone 50mg tab ORAL PRN (22:15)
--- NOTE | 2018-01-05 22:42 | History and Physical ---
History of Present Illness General Date patient seen: January 05, 2018 Time patient seen: 13:00 Reason for Hospitalization: Abdominal Pain Present Illness HPI 42 y/o male with a PMH of cholelithiasis presented to the ED after recently being discharged 2 days ago for recurrent RUQ pain and transaminitis. Patient was discharged back home and advised to follow up for elective outpatient surgery/cholecystectomy. Yesterday, patient states that he started having intractable RUQ pain that was radiating to the LUQ. He also reports nausea but no vomiting. Denies alcohol abuse, illicit drug abuse. Patient was noted to have transaminitis and elevated lipase to 300s, which was not elevated from previous hospital visit. Patient was given IVF, pain meds in the ED and an MRCP was done, pending read. Allergies: Coded Allergies: No Known Allergies (Unverified , 03/28/14) Medication History Scheduled Omeprazole (Omeprazole), 40 MG ORAL DAILY, (Reported) Scheduled PRN Hydrocodone Bit/Acetaminophen 5-325* ([place] 5-325*), 1 TAB ORAL Q6H PRN for For Pain, (Reported) Patient History History Provided By: Patient Healthcare decision maker Resuscitation status Advanced Directive on File Review of Systems All Other Systems: negative except mentioned in HPI Physical Exam General Appearance: alert, mild distress Lines, tubes and drains: peripheral, central line HEENT: normocephalic, atraumatic Neck: non-tender, normal alignment, supple Respiratory/Chest: chest wall non-tender, lungs clear, normal breath sounds Cardiovascular/Chest: normal peripheral pulses, normal rate, regular rhythm Abdomen: normal bowel sounds, soft, guarding Extremities: normal range of motion, non-tender, normal inspection Neurologic: pediatric genetic counselor II-XII grossly normal, no motor/sensory deficits, alert, oriented x 3 Last 24 Hour Vital Signs Date Time Temp Pulse Resp B/P (MAP) Pulse Ox O2 Delivery O2 Flow Rate FiO2 01/05/18 20:16 98.5 52 16 108/69 98 98.5 01/05/18 16:00 98.2 54 17 112/73 98 98.2 01/05/18 12:00 98.0 54 17 117/78 97 98.0 01/05/18 12:00 98.0 54 17 117/78 97 98.0 01/05/18 08:00 97.2 60 18 108/71 98 97.2 5/15/18 08:00 97.2 60 18 108/71 98 97.2 01/05/18 06:49 98.1 65 18 147/88 98 98.1 01/05/18 06:13 98.0 89 18 128/89 100 Room Air 01/05/18 06:13 208.0 16 141/97 96 Room Air 208.0 01/05/18 05:36 97.8 01/05/18 04:41 97.8 73 16 141/97 96 Room Air 97.9 Intake and Output 01/04/18 01/05/18 19:00 07:00 Intake Total 0 ml Balance 0 ml Intake Oral 0 ml Laboratory Tests Test 01/05/18 05:15 White Blood Count 9.2 K/UL (4.8-10.8) Red Blood Count 5.38 M/UL (4.70-6.10) Hemoglobin 16.6 G/DL (14.2-18.0) Hematocrit 50.8 % (42.0-52.0) Mean Corpuscular Volume 94 FL (80-99) Mean Corpuscular Hemoglobin 30.9 PG (27.0-31.0) Mean Corpuscular Hemoglobin Concent 32.7 G/DL (32.0-36.0) Red Cell Distribution Width 11.7 % (11.6-14.8) Platelet Count 294 K/UL (150-450) Mean Platelet Volume 7.5 FL (6.5-10.1) Neutrophils (%) (Auto) 50.6 % (45.0-75.0) Lymphocytes (%) (Auto) 34.6 % (20.0-45.0) Monocytes (%) (Auto) 8.2 % (1.0-10.0) Eosinophils (%) (Auto) 5.5 % (0.0-3.0) H Basophils (%) (Auto) 1.2 % (0.0-2.0) Sodium Level 142 MMOL/L (136-145) Potassium Level 3.8 MMOL/L (3.5-5.1) Chloride Level 104 MMOL/L (98-107) Carbon Dioxide Level 31 MMOL/L (21-32) Anion Gap 7 mmol/L (5-15) Blood Urea Nitrogen 14 mg/dL (7-18) Creatinine 1.0 MG/DL (0.55-1.30) Estimat Glomerular Filtration Rate > 60 mL/min (>60) Glucose Level 102 MG/DL (74-106) Calcium Level 9.1 MG/DL (8.5-10.1) Total Bilirubin 0.4 MG/DL (0.2-1.0) Aspartate Amino Transf (AST/SGOT) 74 U/L (15-37) H Alanine Aminotransferase (ALT/SGPT) 262 U/L (12-78) H Alkaline Phosphatase 150 U/L (46-116) H Total Protein 8.2 G/DL (6.4-8.2) Albumin 4.1 G/DL (3.4-5.0) Globulin 4.1 g/dL Albumin/Globulin Ratio 1.0 (1.0-2.7) Lipase 398 U/L (73-393) H Height (Feet): 5 Height (Inches): 11.00 Weight (Pounds): 180 Medications Current Medications Medications (Trade) Dose Ordered Sig/Kyung Route PRN Reason Start Time Stop Time Status Last Admin Dose Admin Dextrose/Sodium Chloride 1,000 ml @ 125 mls/hr Q8H IV 01/05/18 14:30 02/04/18 14:29 Morphine Sulfate (Morphine Sulfate) 1 mg Q4H PRN IVP Mild Pain (Pain Scale 1-3) 01/05/18 09:30 01/12/18 09:29 Morphine Sulfate (Morphine Sulfate) 4 mg Q4H PRN IVP Moderate Pain (Pain Scale 4-6) 01/05/18 09:30 01/12/18 09:29 01/05/18 09:38 Morphine Sulfate (Morphine Sulfate) 6 mg Q4H PRN IVP Severe Pain (Pain Scale 7-10) 01/05/18 09:30 01/12/18 09:29 Ondansetron HCl (Zofran) 4 mg Q4H PRN IVP Nausea & Vomiting 01/05/18 10:00 02/04/18 09:59 Trazodone HCl (Desyrel) 50 mg BEDTIME PRN ORAL Insomnia 01/05/18 22:15 02/04/18 22:14 01/05/18 22:17 Assessment/Plan Problem List: (1) Cholelithiasis ICD Codes: K80.20 - Calculus of gallbladder without cholecystitis without obstruction SNOMED: 460436781 (2) Bradycardia ICD Codes: R00.1 - Bradycardia, unspecified SNOMED: 10803827 (3) Cholecystitis ICD Codes: K81.9 - Cholecystitis, unspecified SNOMED: 02526393 (4) Gallstone pancreatitis ICD Codes: K85.10 - Biliary acute pancreatitis without necrosis or infection SNOMED: 57410132 Status: stable Assessment/Plan Admit to inpatient General surgery and GI consulted NPO IVF antiemetics prn check coags, CBC, CMP Trend LFTs Cholecystectomy likely in AM F/u MRCP Bradycardia likely 2/2 athlete response Supportive care and pain control DVT Prophylaxis: SCD Code Status: Full Hospital Classification Declaration: Based on this initial evaluation, and depending on the patient's clinical course, I anticipate that this patient will require hospitalization for 2-3 days for gallstone pancreatitis and close respiratory/hemodynamic monitoring. Disposition: Once the patient is stable to leave the hospital, I anticipate the patient will likely be discharged to the following environment: home with HH I spent 72 minutes on this patient's case, and 42 minutes were dedicated to counseling and/or care coordination. Discussed with patient/family, nursing staff, SW/CM, GI, and general surgery regarding clinical status, treatment course, and disposition planning. Time of note may not reflect time of encounter. Alannah Gamez NP January 05, 2018 22:42
[2018-01-06] VITALS (10 sets, daily range): BP systolic 106–142; BP diastolic 55–88
[2018-01-06 04:42] LABS: BASOPHILS % (AUTO) 1.4 % (0.0-2.0); EOSINOPHILS % (AUTO) 8.6 % (0.0-3.0); HEMATOCRIT 45.1 % (42.0-52.0); HEMOGLOBIN 15.1 G/DL (14.2-18.0); LYMPHOCYTES % (AUTO) 38.2 % (20.0-45.0); MEAN CORPUSCULAR VOLUME 96 FL (80-99); MONOCYTES % (AUTO) 11.1 % (1.0-10.0); NEUTROPHILS % (AUTO) 40.6 % (45.0-75.0); PLATELET COUNT 241 K/UL (150-450); RED BLOOD COUNT 4.72 M/UL (4.70-6.10); RED CELL DISTRIBUTION WIDTH 11.7 % (11.6-14.8); WHITE BLOOD COUNT 6.8 K/UL (4.8-10.8)
[2018-01-06 04:59] LABS: ALANINE AMINOTRANSFERASE 189 U/L (12-78); ALBUMIN 3.3 G/DL (3.4-5.0); ALBUMIN/GLOBULIN RATIO 0.9 (1.0-2.7); ALKALINE PHOSPHATASE 120 U/L (46-116); ANION GAP 6 mmol/L (5-15); ASPARTATE AMINO TRANSFERASE 54 U/L (15-37); BILIRUBIN,TOTAL 0.7 MG/DL (0.2-1.0); BLOOD UREA NITROGEN 10 mg/dL (7-18); CALCIUM 9.3 MG/DL (8.5-10.1); CARBON DIOXIDE 30 MMOL/L (21-32); CHLORIDE 105 MMOL/L (98-107); POTASSIUM 3.5 MMOL/L (3.5-5.1); SODIUM 141 MMOL/L (136-145)
[2018-01-06] MEDS: D5 1/2NS 1,000 ML IV SCH ×2 (05:55→14:33)
[2018-01-06] MEDS ORDERED: Lidocaine 1% 10mg/ml/Epi 0.005mg/ml 30ml vial INJ ONE (06:33)
[2018-01-06] MEDS ORDERED: Iothalamate Meglumine 60% 30ML INJ ONE (06:33)
[2018-01-06] MEDS ORDERED: Bupivacaine 0.25% Inj 30ml INJ ONE (06:33)
[2018-01-06] MEDS ORDERED: EPINEPHrine 1mg/1ml Amp ONE (06:33)
[2018-01-06] MEDS ORDERED: Sugammadex Sodium 200mg/2ml vial IV ONE (09:00)
[2018-01-06] MEDS ORDERED: Sterile Water Irrig 1000ml IRRIG ONE (09:00)
[2018-01-06] MEDS ORDERED: LR 1000ml ONE (09:00)
[2018-01-06] MEDS ORDERED: NS Irrig 1000ml ONE (09:00)
[2018-01-06] MEDS ORDERED: Zemuron 50mg/5ml Inj IV ONE (09:01)
[2018-01-06] MEDS ORDERED: Midazolam 2mg/2ml Inj ONE (09:06)
[2018-01-06] MEDS ORDERED: fentaNYL 100 mcg/2 mL IV ONE (09:06)
[2018-01-06] MEDS ORDERED: Propofol 200mg/20ml IV ONE (09:07)
[2018-01-06] MEDS ORDERED: Dexamethasone 4mg/ml vial ONE (09:07)
[2018-01-06] MEDS ORDERED: LR 1000ml 1,000 ML IVLG SCH (09:53)
[2018-01-06] MEDS ORDERED: HYDROcodone/Acetamin 7.5/325 tab ORAL PRN (10:00)
[2018-01-06] MEDS ORDERED: DiphenhydrAMINE 50mg/ml Inj IVP PRN (10:00)
--- NOTE | 2018-01-06 10:06 | Anethesia Preoperative Eval ---
Anesthesia Pre-op PMH/ROS General Date of Evaluation: January 06, 2018 Time of Evaluation: 08:45 Anesthesiologist: ASA Score: ASA 2 Mallampati Score Class I : Soft palate, uvula, fauces, pillars visible Class II: Soft palate, uvula, fauces visible Class III: Soft palate, base of uvula visible Class IV: Only hard plate visible Mallampati Classification: Class II Surgeon: farooq Diagnosis: cholecstitis Surgical Procedure: laparoscopic cholecystectomy w/ cholangiogram Anesthesia History: none Family History: no anesthesia problems Allergies: Coded Allergies: No Known Allergies (Unverified , 03/28/14) Medications: see eMAR Past Medical History Cardiovascular: Denies: HTN, CAD, MA, valve dz, arrhythmia, other Pulmonary: Denies: asthma, COPD, ALCIDES, other Gastrointestinal/Genitourinary: Denies: GERD, CRI, ESRD, other Neurologic/Psychiatric: Denies: dementia, CVA, depression/anxiety, TIA, other HEENT: Denies: cataract (L), cataract (R), glaucoma, [place] (L), [place] (R), other Hematology/Immune: Denies: anemia, DVT, bleeding disorder, other Musculoskeletal/Integumentary: Denies: OA, RA, DJD, DDD, edema, other PSxH Narrative: L4-5 herniated disc repair Anesthesia Pre-op Phys. Exam Physician Exam Last Vital Signs Date Time Temp Pulse Resp B/P (MAP) Pulse Ox O2 Delivery O2 Flow Rate FiO2 01/06/18 07:56 97.5 50 20 106/55 98 Room Air 97.5 Constitutional: NAD Cardiovascular: RRR Respiratory: CTA Gastrointestinal: S/NT/ND Airway Exam Mallampati Score: Class II MO: full ROM: full Teeth: intact Dentures: no upper, no lower Anesthesia Pre-op A/P Labs Hematology Test 01/06/18 04:15 White Blood Count 6.8 K/UL (4.8-10.8) Red Blood Count 4.72 M/UL (4.70-6.10) Hemoglobin 15.1 G/DL (14.2-18.0) Hematocrit 45.1 % (42.0-52.0) Mean Corpuscular Volume 96 FL (80-99) Mean Corpuscular Hemoglobin 32.0 PG (27.0-31.0) H Mean Corpuscular Hemoglobin Concent 33.4 G/DL (32.0-36.0) Red Cell Distribution Width 11.7 % (11.6-14.8) Platelet Count 241 K/UL (150-450) Mean Platelet Volume 7.4 FL (6.5-10.1) Neutrophils (%) (Auto) 40.6 % (45.0-75.0) L Lymphocytes (%) (Auto) 38.2 % (20.0-45.0) Monocytes (%) (Auto) 11.1 % (1.0-10.0) H Eosinophils (%) (Auto) 8.6 % (0.0-3.0) H Basophils (%) (Auto) 1.4 % (0.0-2.0) Chemistry Test 01/06/18 04:15 Sodium Level 141 MMOL/L (136-145) Potassium Level 3.5 MMOL/L (3.5-5.1) Chloride Level 105 MMOL/L (98-107) Carbon Dioxide Level 30 MMOL/L (21-32) Anion Gap 6 mmol/L (5-15) Blood Urea Nitrogen 10 mg/dL (7-18) Creatinine 1.0 MG/DL (0.55-1.30) Estimat Glomerular Filtration Rate > 60 mL/min (>60) Glucose Level 113 MG/DL (74-106) H Calcium Level 9.3 MG/DL (8.5-10.1) Total Bilirubin 0.7 MG/DL (0.2-1.0) Aspartate Amino Transf (AST/SGOT) 54 U/L (15-37) H Alanine Aminotransferase (ALT/SGPT) 189 U/L (12-78) H Alkaline Phosphatase 120 U/L (46-116) H Total Protein 6.8 G/DL (6.4-8.2) Albumin 3.3 G/DL (3.4-5.0) L Globulin 3.5 g/dL Albumin/Globulin Ratio 0.9 (1.0-2.7) L Lipase 182 U/L (73-393) Risk Assessment & Plan Assessment: ASA 2 okay to proceed Plan: ETGA Pre-Antibiotics Drug: ancef 2 grams Given Within 1 Hr of Incision: Yes Time Given: 09:27 April Roblero M.D. January 06, 2018 10:06
[2018-01-06] MEDS ORDERED: Ketorolac 30mg Inj ONE (10:56)
--- NOTE | 2018-01-06 11:15 | Immediate Post-Op Evaluation ---
Immediate Post-Op Evalulation Immediate Post-Op Evalulation Procedure: laparoscopic cholecystectomy Date of Evaluation: January 06, 2018 Time of Evaluation: 10:54 IV Fluids: LR 1000ml Blood Products: 0 Estimated Blood Loss: 5ml Urinary Output: 0 Blood Pressure Systolic: 137 Blood Pressure Diastolic: 88 Pulse Rate: 81 Respiratory Rate: 19 O2 Sat by Pulse Oximetry: 99 Temperature (Fahrenheit): 97.4 Pain Score (1-10): 5 Nausea: No Vomiting: No Complications none Patient Status: patent, none Drug: ancef 2 grams Given Within 1 Hr of Incision: Yes Time Given: 09:25 April Roblero M.D. January 06, 2018 11:15
--- NOTE | 2018-01-06 11:35 | GI Progress Note ---
Assessment/Plan Problems: (1) Gallstone pancreatitis ICD Codes: K85.10 - Biliary acute pancreatitis without necrosis or infection SNOMED: 98115578 Status: unchanged Status Narrative Discussed with Dr. Otto. Assessment/Plan MRCP reviewed >> Cholelithiasis. No definite evidence of choledocholithiasis. No biliary ductal dilatation elevated lipase Patient scheduled for Laparoscopic cholecystectomy today. maintain NPO + IVFs pain mgmt will follow for any post operative N/V. ppi d/w with patient at bedside fu labs The patient was seen and examined at bedside and all new and available data was reviewed in the patients chart. I agree with the above findings, impression and plan. (Patient seen earlier today. Signature stamp does not reflect patient encounter time.). - Carlos Otto MD Subjective Gastrointestinal/Abdominal: Reports: no symptoms Objective Last 24 Hour Vital Signs Date Time Temp Pulse Resp B/P (MAP) Pulse Ox O2 Delivery O2 Flow Rate FiO2 01/06/18 11:15 207.3 81 19 99 01/06/18 07:56 97.5 50 20 106/55 98 Room Air 97.5 01/06/18 06:05 97.1 60 19 141/74 98 Room Air 97.1 01/05/18 20:16 98.5 52 16 108/69 98 98.5 01/05/18 16:00 98.2 54 17 112/73 98 98.2 01/05/18 12:00 98.0 54 17 117/78 97 98.0 01/05/18 12:00 98.0 54 17 117/78 97 98.0 Intake and Output 01/05/18 01/06/18 19:00 07:00 Intake Total 1250 ml Balance 1250 ml IV Total 1250 ml # Voids 5 2 # Bowel Movements 1 Laboratory Tests Test 01/06/18 04:15 White Blood Count 6.8 K/UL (4.8-10.8) Red Blood Count 4.72 M/UL (4.70-6.10) Hemoglobin 15.1 G/DL (14.2-18.0) Hematocrit 45.1 % (42.0-52.0) Mean Corpuscular Volume 96 FL (80-99) Mean Corpuscular Hemoglobin 32.0 PG (27.0-31.0) H Mean Corpuscular Hemoglobin Concent 33.4 G/DL (32.0-36.0) Red Cell Distribution Width 11.7 % (11.6-14.8) Platelet Count 241 K/UL (150-450) Mean Platelet Volume 7.4 FL (6.5-10.1) Neutrophils (%) (Auto) 40.6 % (45.0-75.0) L Lymphocytes (%) (Auto) 38.2 % (20.0-45.0) Monocytes (%) (Auto) 11.1 % (1.0-10.0) H Eosinophils (%) (Auto) 8.6 % (0.0-3.0) H Basophils (%) (Auto) 1.4 % (0.0-2.0) Sodium Level 141 MMOL/L (136-145) Potassium Level 3.5 MMOL/L (3.5-5.1) Chloride Level 105 MMOL/L (98-107) Carbon Dioxide Level 30 MMOL/L (21-32) Anion Gap 6 mmol/L (5-15) Blood Urea Nitrogen 10 mg/dL (7-18) Creatinine 1.0 MG/DL (0.55-1.30) Estimat Glomerular Filtration Rate > 60 mL/min (>60) Glucose Level 113 MG/DL (74-106) H Calcium Level 9.3 MG/DL (8.5-10.1) Total Bilirubin 0.7 MG/DL (0.2-1.0) Aspartate Amino Transf (AST/SGOT) 54 U/L (15-37) H Alanine Aminotransferase (ALT/SGPT) 189 U/L (12-78) H Alkaline Phosphatase 120 U/L (46-116) H Total Protein 6.8 G/DL (6.4-8.2) Albumin 3.3 G/DL (3.4-5.0) L Globulin 3.5 g/dL Albumin/Globulin Ratio 0.9 (1.0-2.7) L Lipase 182 U/L (73-393) Height (Feet): 5 Height (Inches): 11.00 Weight (Pounds): 180 General Appearance: WD/WN, no apparent distress, alert Cardiovascular: normal rate Respiratory/Chest: normal breath sounds, no respiratory distress Abdominal Exam: normal bowel sounds, non tender, soft Extremities: normal range of motion, non-tender Downs,ElyMargaret SUPERVISOR WINTER January 06, 2018 11:35
--- NOTE | 2018-01-06 12:51 | 48 Hour Post Anesthesia Eval ---
Post Anesthesia Evaluation Procedure: laparoscopic cholecystectomy Date of Evaluation: January 06, 2018 Time of Evaluation: 11:20 Blood Pressure Systolic: 131 0: 79 Pulse Rate: 63 Respiratory Rate: 19 Temperature (Fahrenheit): 97.4 O2 Sat by Pulse Oximetry: 99 Airway: patent Nausea: No Vomiting: No Hydration Status: adequate Mental Status/LOC: patient returned to baseline Post-Anesthesia Complications: none Follow-up care needed: ready to discharge April Roblero M.D. January 06, 2018 12:51
--- NOTE | 2018-01-06 12:53 | Brief Operative Note ---
Immediate Post Operative Note Operative Note Pre-op Diagnosis: gallstone pancreatitis Procedure: laparoscopic cholecystectomy Post-op Diagnosis: same as pre-op Surgeon: farooq Anesthesia: general Specimen: yes Complications: none Condition: stable Fluids: see records Estimated Blood Loss: minimal Drains: none Implant(s) used?: No Isma Poon January 06, 2018 12:53
[2018-01-06] MEDS ORDERED: Milk of Magnesia 30ml Ud ORAL PRN (13:00)
--- NOTE | 2018-01-06 13:07 | General Progress Note ---
Assessment/Plan Problem List: (1) Cholelithiasis ICD Codes: K80.20 - Calculus of gallbladder without cholecystitis without obstruction SNOMED: 853384789 (2) Bradycardia ICD Codes: R00.1 - Bradycardia, unspecified SNOMED: 69775135 (3) Cholecystitis ICD Codes: K81.9 - Cholecystitis, unspecified SNOMED: 57610367 (4) Gallstone pancreatitis ICD Codes: K85.10 - Biliary acute pancreatitis without necrosis or infection SNOMED: 41970388 (5) Status post laparoscopic cholecystectomy ICD Codes: Z90.49 - Acquired absence of other specified parts of digestive tract SNOMED: 98534667, 64475726, 638863455 Status: stable Assessment/Plan s/p laparoscopic cholecystectomy, POD#0. f/u operative report General surgery and GI consulted NPO, diet to be advanced per surgery IVF antiemetics prn monitor CBC, CMP Trend LFTs MRCP with no biliary dilatation, choledocholithiasis Bradycardia likely 2/2 athlete response Supportive care and pain control DVT Prophylaxis: SCD Code Status: Full Hospital Classification Declaration: Based on this initial evaluation, and depending on the patient's clinical course, I anticipate that this patient will require hospitalization for 2-3 days for gallstone pancreatitis and close respiratory/hemodynamic monitoring. Disposition: Once the patient is stable to leave the hospital, I anticipate the patient will likely be discharged to the following environment: home with I spent 42 minutes on this patient's case, and 23 minutes were dedicated to counseling and/or care coordination. Discussed with patient/family, nursing staff, SW/CM, GI, and general surgery regarding clinical status, treatment course, and disposition planning. Time of note may not reflect time of encounter. Subjective Date patient seen: January 06, 2018 Time patient seen: 13:02 Allergies: Coded Allergies: No Known Allergies (Unverified , 03/28/14) Subjective - s/p laparoscopic cholecystectomy, POD#0 - reports incisional pain - AF, HDS Objective Last 24 Hour Vital Signs Date Time Temp Pulse Resp B/P (MAP) Pulse Ox O2 Delivery O2 Flow Rate FiO2 01/06/18 12:51 207.3 63 19 99 01/06/18 11:20 63 19 131/79 99 Nasal Cannula 3.0 01/06/18 11:15 207.3 81 19 99 01/06/18 11:05 74 19 139/73 99 Nasal Cannula 3.0 01/06/18 10:58 67 19 142/77 99 Nasal Cannula 3.0 01/06/18 10:53 97.4 81 19 137/88 99 Simple Mask 8.0 97.4 01/06/18 07:56 97.5 50 20 106/55 98 Room Air 97.5 01/06/18 06:05 97.1 60 19 141/74 98 Room Air 97.1 01/05/18 20:16 98.5 52 16 108/69 98 98.5 01/05/18 16:00 98.2 54 17 112/73 98 98.2 Intake and Output 01/05/18 01/06/18 19:00 07:00 Intake Total 1250 ml Balance 1250 ml IV Total 1250 ml # Voids 5 2 # Bowel Movements 1 Laboratory Tests 01/06/18 04:15: White Blood Count 6.8, Red Blood Count 4.72, Hemoglobin 15.1, Hematocrit 45.1, Mean Corpuscular Volume 96, Mean Corpuscular Hemoglobin 32.0H, Mean Corpuscular Hemoglobin Concent 33.4, Red Cell Distribution Width 11.7, Platelet Count 241, Mean Platelet Volume 7.4, Neutrophils (%) (Auto) 40.6L, Lymphocytes (%) (Auto) 38.2, Monocytes (%) (Auto) 11.1H, Eosinophils (%) (Auto) 8.6H, Basophils (%) ( Auto) 1.4, Sodium Level 141, Potassium Level 3.5, Chloride Level 105, Carbon Dioxide Level 30, Anion Gap 6, Blood Urea Nitrogen 10, Creatinine 1.0, Estimat Glomerular Filtration Rate > 60, Glucose Level 113H, Calcium Level 9.3, Total Bilirubin 0.7, Aspartate Amino Transf (AST/SGOT) 54H, Alanine Aminotransferase ( ALT/SGPT) 189H, Alkaline Phosphatase 120H, Total Protein 6.8, Albumin 3.3L, Globulin 3.5, Albumin/Globulin Ratio 0.9L, Lipase 182 Height (Feet): 5 Height (Inches): 11.00 Weight (Pounds): 180 General Appearance: alert, mild distress EENT: PERRL/EOMI, normal ENT inspection Neck: non-tender, normal alignment, supple Cardiovascular: normal peripheral pulses, normal rate, regular rhythm Respiratory/Chest: chest wall non-tender, lungs clear, normal breath sounds Abdomen: soft, hypoactive bowel sounds, tender, other - surgical incisions with gauze Extremities: normal range of motion, non-tender Alannah Gamez NP January 06, 2018 13:07
[2018-01-06] MEDS ORDERED: Morphine Sulfate 4mg/ml Inj IVP PRN (13:45)
[2018-01-06] MEDS: Morphine Sulfate 4mg/ml Inj IVP PRN ×2 (13:52→19:10)
[2018-01-06] MEDS ORDERED: HYDROcodone/Acetamin 10/325 tab ORAL PRN (14:00)
[2018-01-06] MEDS ORDERED: Ketorolac 30mg Inj IV PRN (14:00)
[2018-01-06] MEDS ORDERED: Norco 5mg/325mg tab ORAL PRN (14:00)
[2018-01-06] MEDS: ceFAZolin sod 2 GM in D5W 110 ML IV SCH (16:53)
[2018-01-06] MEDS ORDERED: D5 1/2NS 1000ml IV ONE (20:40)
--- NOTE | 2018-01-06 21:00 | Operative Note - Dictated ---
DATE OF OPERATION: 01/06/2018 PREOPERATIVE DIAGNOSIS: Gallstone pancreatitis. POSTOPERATIVE DIAGNOSIS: Gallstone pancreatitis. OPERATION PERFORMED: Laparoscopic cholecystectomy. ATTENDING SURGEON: Isma Poon M.D. HOLLOCK MAKER: None. ANESTHESIOLOGIST: April Roblero M.D. ANESTHESIA: General MANNEQUIN MAKER. ESTIMATED BLOOD LOSS: Minimal. IV FLUIDS: Please see anesthesia records. COMPLICATIONS: None. DRAINS: None. WOUND CLASSIFICATION: Class 2. SPECIMENS: Gallbladder and stones sent to pathology for review. COUNTS: Sponge and needle count correct x2. ANTIBIOTICS: The patient was given 2 g Ancef IV one hour prior to cut time. INDICATIONS FOR PROCEDURE: The patient is a 42-year-old male, who recently presented and was admitted for episode of acute cholecystitis, which resolved during hospitalization and the patient was discharged home with instructions follow up with PCP for surgical referral and planned elective laparoscopic cholecystectomy. The patient states that for many years, he has had intermittent attacks of biliary colic and multiple prior hospital emergency room visits for such events. After admission, he returned approximately 48 hours later with complaints of worsening right upper quadrant abdominal pain with radiation to the back. On admission, the patient was noted to have elevated liver enzymes and pancreatitis. This is assumed to be his first episode of gallstone pancreatitis. MRCP was performed identifying the biliary tract with not being obstructive in nature. At this point, decision was made to proceed with laparoscopic cholecystectomy, possible intraoperative cholangiogram, and possible open cholecystectomy given the patient's history, recent development of gallstone pancreatitis, and potential for recurrent episodes and worsening condition. Surgery was indicated and recommended. Risks, benefits, and alternatives were discussed in detail. The patient stated understanding and consented to surgery. OPERATIVE NOTE: The patient was taken to the operating room and placed on the operating table in supine position with left arm tucked. All bony prominences were well padded. Preoperative time-out was taken in identifying the patient, procedure, operative staff, and surgical staff. The patient was given 2 g Ancef IV one hour prior to cut time. General anesthesia was induced and the patient was intubated. No Patel was inserted given the patient has voided prior to entering the operating room. SCDs were placed. The abdomen was clipped, prepped, and draped in standard surgical fashion. An infraumbilical incision was made and carried down to the fascia, which was elevated and incised. Entry into the abdomen was identified using the open Disha technique. A Disha trocar was inserted. The abdomen was insufflated to 12 to 15 mmHg. The patient tolerated the insufflation well. Secondary trocars were placed under direct visualization beginning with a 12 mm subxiphoid epigastric trocar site and two 5 mm right subcostal port sites. The gallbladder was identified and the filmy adhesions between the gallbladder and omentum were taken down using electrocautery and blunt dissection as necessary. The gallbladder was then identified and the dome of the gallbladder was grasped using most lateral port and retracted over the liver. The infundibulum was identified and grasped. The peritoneal lining overlying the gallbladder was scored and taken down. There was a thick peritoneal lining and edema around the gallbladder including the infundibulum and the cystic plate. Once the lateral aspects of the gallbladder were dissected free, I then worked my way over to the medial aspect as the gallbladder was retracted towards the right lower quadrant and the critical view was obtained identifying the cystic duct, cystic artery, lymph node, and the only structures entering directly into the gallbladder. The cystic artery was then doubly clipped and divided. Further dissection was identified. The cystic duct was only remaining structure entering into the gallbladder. Cystic duct was then doubly clipped and divided. The remainder of the gallbladder attachments were taken down off the gallbladder and the gallbladder fossa using electrocautery. The gallbladder was placed in endoscopic retrieval bag and removed through the subxiphoid port site. Hemostasis was achieved with electrocautery as necessary. A Surgicel was placed into the gallbladder fossa. At this point in time, we began the conclusion of our procedure. Secondary trocars were removed under direct visualization. The abdomen was desufflated. The 12 mm trocar port sites were closed using a [id number] #0 Vicryl suture. The remaining skin incisions were closed using 4-0 Monocryl subcuticular interrupted sutures. The patient tolerated the procedure well. Dressings were applied and the patient was extubated and taken to postanesthesia care unit in stable condition. Isma Poon M.D. DR: YASMINE JOB#: [id number] CC: [email or web address]
[2018-01-07] VITALS: BP 125/75
[2018-01-07] MEDS: ceFAZolin sod 2 GM in D5W 110 ML IV SCH (00:17)
[2018-01-07 04:00] VITALS: BP 110/68
[2018-01-07 08:00] VITALS: BP 127/78
[2018-01-07 08:18] VITALS: BP 110/72
--- NOTE | 2018-01-07 08:18 | 48 Hour Post Anesthesia Eval ---
Post Anesthesia Evaluation Procedure: laparoscopic cholecystectomy Date of Evaluation: January 07, 2018 Time of Evaluation: 08:17 Blood Pressure Systolic: 110 0: 72 Pulse Rate: 68 Respiratory Rate: 20 Temperature (Fahrenheit): 97.8 O2 Sat by Pulse Oximetry: 99 Airway: patent Nausea: No Vomiting: No Pain Intensity: 2 Hydration Status: adequate Cardiopulmonary Status: stable Mental Status/LOC: patient returned to baseline Follow-up Care/Observations: n/a Post-Anesthesia Complications: none Follow-up care needed: ready to discharge Noah Martínez MD January 07, 2018 08:18
[2018-01-07 08:22] LABS: ALANINE AMINOTRANSFERASE 159 U/L (12-78); ALBUMIN 3.2 G/DL (3.4-5.0); ALBUMIN/GLOBULIN RATIO 0.9 (1.0-2.7); ALKALINE PHOSPHATASE 112 U/L (46-116); ANION GAP 8 mmol/L (5-15); ASPARTATE AMINO TRANSFERASE 43 U/L (15-37); BASOPHILS % (AUTO) 0.4 % (0.0-2.0); BILIRUBIN,TOTAL 0.4 MG/DL (0.2-1.0); BLOOD UREA NITROGEN 12 mg/dL (7-18); CALCIUM 8.5 MG/DL (8.5-10.1); CARBON DIOXIDE 27 MMOL/L (21-32); CHLORIDE 105 MMOL/L (98-107); CREATININE 0.9 MG/DL (0.55-1.30); EOSINOPHILS % (AUTO) 1.8 % (0.0-3.0); HEMATOCRIT 42.1 % (42.0-52.0); LYMPHOCYTES % (AUTO) 12.6 % (20.0-45.0); MEAN CORPUSCULAR VOLUME 96 FL (80-99); MONOCYTES % (AUTO) 8.1 % (1.0-10.0); NEUTROPHILS % (AUTO) 77.2 % (45.0-75.0); PLATELET COUNT 242 K/UL (150-450); POTASSIUM 3.7 MMOL/L (3.5-5.1); RED BLOOD COUNT 4.39 M/UL (4.70-6.10); RED CELL DISTRIBUTION WIDTH 11.6 % (11.6-14.8); SODIUM 140 MMOL/L (136-145); WHITE BLOOD COUNT 16.4 K/UL (4.8-10.8)
--- NOTE | 2018-01-07 10:28 | GI Progress Note ---
Assessment/Plan Problems: (1) Gallstone pancreatitis ICD Codes: K85.10 - Biliary acute pancreatitis without necrosis or infection SNOMED: 71247614 Status: stable Status Narrative Discussed with Dr. Otto. Assessment/Plan MRCP reviewed >> Cholelithiasis. No definite evidence of choledocholithiasis. No biliary ductal dilatation elevated lipase >> now WNL okay for DC per GI standpoint s/p lap alberta diet per surgery pain mgmt zofran prn ppi d/w with patient at bedside fu labs The patient was seen and examined at bedside and all new and available data was reviewed in the patients chart. I agree with the above findings, impression and plan. (Patient seen earlier today. Signature stamp does not reflect patient encounter time.). - Cralos Otto MD Subjective Subjective abdominal pain improved tolerating diet no N/V Objective Last 24 Hour Vital Signs Date Time Temp Pulse Resp B/P (MAP) Pulse Ox O2 Delivery O2 Flow Rate FiO2 01/07/18 08:18 208.0 68 20 99 01/07/18 08:00 97.0 78 17 127/78 99 97.0 01/07/18 04:00 97.3 66 18 110/68 97 Room Air 97.3 01/07/18 00:00 98.1 74 18 125/75 97 Room Air 98.1 01/06/18 20:00 98.1 65 115/65 98.1 01/06/18 20:00 18 97 Room Air 01/06/18 19:40 97.6 01/06/18 19:10 97.6 01/06/18 16:00 97.6 62 19 118/65 97 Nasal Cannula 3.0 97.6 01/06/18 13:30 98.2 66 18 125/84 100 Nasal Cannula 3.0 98.2 01/06/18 12:51 207.3 63 19 99 01/06/18 12:20 98.2 77 18 126/72 98 Nasal Cannula 3.0 98.2 01/06/18 11:20 63 19 131/79 99 Nasal Cannula 3.0 01/06/18 11:15 207.3 81 19 99 01/06/18 11:05 74 19 139/73 99 Nasal Cannula 3.0 01/06/18 10:58 67 19 142/77 99 Nasal Cannula 3.0 01/06/18 10:53 97.4 81 19 137/88 99 Simple Mask 8.0 97.4 Intake and Output 01/06/18 01/07/18 19:00 07:00 Intake Total 2052.5 ml 340 ml Output Total 5 ml Balance 2047.5 ml 340 ml Intake Oral 340 ml IV Total 2052.5 ml Output Estimated Blood Loss 5 ml # Voids 3 2 # Bowel Movements 1 Laboratory Tests Test 01/07/18 05:10 White Blood Count 16.4 K/UL (4.8-10.8) #H Red Blood Count 4.39 M/UL (4.70-6.10) L Hemoglobin 14.0 G/DL (14.2-18.0) L Hematocrit 42.1 % (42.0-52.0) Mean Corpuscular Volume 96 FL (80-99) Mean Corpuscular Hemoglobin 31.9 PG (27.0-31.0) H Mean Corpuscular Hemoglobin Concent 33.3 G/DL (32.0-36.0) Red Cell Distribution Width 11.6 % (11.6-14.8) Platelet Count 242 K/UL (150-450) Mean Platelet Volume 7.8 FL (6.5-10.1) Neutrophils (%) (Auto) 77.2 % (45.0-75.0) H Lymphocytes (%) (Auto) 12.6 % (20.0-45.0) L Monocytes (%) (Auto) 8.1 % (1.0-10.0) Eosinophils (%) (Auto) 1.8 % (0.0-3.0) Basophils (%) (Auto) 0.4 % (0.0-2.0) Sodium Level 140 MMOL/L (136-145) Potassium Level 3.7 MMOL/L (3.5-5.1) Chloride Level 105 MMOL/L (98-107) Carbon Dioxide Level 27 MMOL/L (21-32) Anion Gap 8 mmol/L (5-15) Blood Urea Nitrogen 12 mg/dL (7-18) Creatinine 0.9 MG/DL (0.55-1.30) Estimat Glomerular Filtration Rate > 60 mL/min (>60) Glucose Level 83 MG/DL (74-106) Calcium Level 8.5 MG/DL (8.5-10.1) Total Bilirubin 0.4 MG/DL (0.2-1.0) Aspartate Amino Transf (AST/SGOT) 43 U/L (15-37) H Alanine Aminotransferase (ALT/SGPT) 159 U/L (12-78) H Alkaline Phosphatase 112 U/L (46-116) Total Protein 6.8 G/DL (6.4-8.2) Albumin 3.2 G/DL (3.4-5.0) L Globulin 3.6 g/dL Albumin/Globulin Ratio 0.9 (1.0-2.7) L Height (Feet): 5 Height (Inches): 11.00 Weight (Pounds): 180 General Appearance: WD/WN, no apparent distress, alert Cardiovascular: normal rate Respiratory/Chest: normal breath sounds, no respiratory distress Abdominal Exam: normal bowel sounds, non tender, soft, incision site Extremities: normal range of motion, non-tender Gigi Downs NP January 07, 2018 10:28
--- NOTE | 2018-01-07 10:30 | Consultation ---
DATE OF CONSULTATION: 01/06/2018 HEMATOLOGY/ONCOLOGY CONSULTATION CONSULTING PHYSICIAN: Jm Hammond M.D. REQUESTING PHYSICIAN: 1. Dandre Regan M.D. 2. Jez Gaspar M.D. REASON FOR CONSULT: Evaluation of monocytosis. IDENTIFYING DATA: Dear Dr. Regan, The patient is a pleasant 42-year-old male with past medical history, which is significant for cholelithiasis as well as GERD, at this time presents to the ER, recently discharged several days ago with transaminitis, noted to have lipase 300. The patient here to follow up cholecystectomy. He was having intractable right upper quadrant pain, was seen by Dr. Isma Poon. The patient is in stable condition, discharged home, afebrile, hemodynamically stable. Recommendations have been reviewed . The patient at this time noted to have monocyte percentage of 8.6%. Hematology Service consulted for evaluation of monocytosis. PAST MEDICAL HISTORY: As noted above, cholelithiasis. MEDICATIONS: Omeprazole. SURGICAL HISTORY: Cholecystectomy. FAMILY HISTORY: Noncontributory. SOCIAL HISTORY: No alcohol, tobacco, or illicit drug use. REVIEW OF SYSTEMS: CONSTITUTIONAL: No fever, chills, or night sweats. SKIN: No rashes, bumps, or itching. HEENT: No headache, hearing or vision changes. BREASTS: No lumps, pain, or discharge. PULMONARY: No cough, sputum, or shortness of breath. GASTROINTESTINAL: No nausea, vomiting, or diarrhea. GENITOURINARY: No dysuria, frequency, or urgency. MUSCULOSKELETAL: No joint swelling, muscle pain, or trauma. PHYSICAL EXAMINATION: VITAL SIGNS: Reviewed. GENERAL: No distress. LUNGS: Decreased breath sounds. CARDIOVASCULAR: Regular rate. No S3 or S4. ABDOMEN: The patient is status post cholecystectomy. Minor surgical scars are noted. EXTREMITIES: No cyanosis, swelling, or edema reported. ASSESSMENT AND RECOMMENDATIONS: 1. Eosinophilia. Serum eosinophilia is noted, very minor at this time, it is only 5% to 10%. Multiple etiologies possible including parasitic infections, allergies, skin disorder in addition to potential medications such as omeprazole. At this time nonsignificant. Continue to closely monitor. 2. Monocytosis, potentially related to most recent surgery. Closely monitor for improvement over the next several days. 3. Gallstone pancreatitis. The patient did have cholecystectomy today. . 4. Abdominal pain, mostly related to above. I appreciate consultation. Jm Hammond M.D. DR: ALE JOB#: [id number] CC:
[2018-01-07] MEDS ORDERED: NORCO 5-325 TA1 EACH ORAL (11:58)
[2018-01-07] MEDS ORDERED: COLACE100 MG ORAL (11:59)
[2018-01-07] MEDS ORDERED: Tubing IV Secondary IV ONE (12:24)
[2018-01-07] MEDS ORDERED: NS 275ml ONE (12:24)
--- NOTE | 2018-01-07 14:09 | General Progress Note ---
Assessment/Plan Assessment/Plan ASSESSMENT AND RECOMMENDATIONS: #. Eosinophilia. Serum eosinophilia is noted, very minor at this time, it is only 5% to 10%. Multiple etiologies possible including parasitic infections, allergies, skin disorder in addition to potential medications such as omeprazole. At this time nonsignificant. Continue to closely monitor. #. Leukocytosis likely 2/2 recently performed surgery, stable for discharge --> f/u outpatient with heme #. Monocytosis, potentially related to most recent surgery. Closely monitor for improvement over the next several days. #. Gallstone pancreatitis. The patient did have cholecystectomy last night #. Abdominal pain, mostly related to above. Subjective Constitutional: Denies: no symptoms, chills, diaphoresis, fever, malaise, weakness, other HEENT: Denies: no symptoms, eye pain, blurred vision, tearing, double vision, ear pain, ear discharge, nose pain, nose congestion, throat pain, throat swelling, mouth pain, mouth swelling, other Cardiovascular: Denies: no symptoms, chest pain, edema, irregular heart rate, lightheadedness, palpitations, syncope, other Respiratory: Denies: no symptoms, cough, orthopnea, shortness of breath, SOB with excertion, SOB at rest, sputum, stridor, wheezing, other Gastrointestinal/Abdominal: Denies: no symptoms, abdomen distended, abdominal pain, black stools, tarry stools, blood in stool, constipated, diarrhea, difficulty swallowing, nausea, poor appetite, poor fluid intake, rectal bleeding , vomiting, other Genitourinary: Denies: no symptoms, burning, discharge, frequency, flank pain, hematuria, incontinence, pain, urgency, other Neurologic/Psychiatric: Denies: no symptoms, anxiety, depressed, emotional problems, headache, numbness, paresthesia, pre-existing deficit, seizure, tingling, tremors, weakness, other Endocrine: Denies: no symptoms, excessive sweating, flushing, intolerance to cold, intolerance to heat, increased hunger, increased thirst, increased urine, unexplained weight gain, unexplained weight loss, other Hematologic/Lymphatic: Denies: no symptoms, anemia, easy bleeding, easy bruising, other Allergies: Coded Allergies: No Known Allergies (Unverified , 03/28/14) Subjective feeling better potential d/c Objective Last 24 Hour Vital Signs Date Time Temp Pulse Resp B/P (MAP) Pulse Ox O2 Delivery O2 Flow Rate FiO2 01/07/18 08:18 208.0 68 20 99 01/07/18 08:00 97.0 78 17 127/78 99 97.0 01/07/18 04:00 97.3 66 18 110/68 97 Room Air 97.3 01/07/18 00:00 98.1 74 18 125/75 97 Room Air 98.1 01/06/18 20:00 98.1 65 115/65 98.1 01/06/18 20:00 18 97 Room Air 01/06/18 19:40 97.6 01/06/18 19:10 97.6 01/06/18 16:00 97.6 62 19 118/65 97 Nasal Cannula 3.0 97.6 Intake and Output 01/06/18 01/07/18 19:00 07:00 Intake Total 2052.5 ml 340 ml Output Total 5 ml Balance 2047.5 ml 340 ml Intake Oral 340 ml IV Total 2052.5 ml Output Estimated Blood Loss 5 ml # Voids 3 2 # Bowel Movements 1 Laboratory Tests 01/07/18 05:10: White Blood Count 16.4#H, Red Blood Count 4.39L, Hemoglobin 14.0L, Hematocrit 42.1, Mean Corpuscular Volume 96, Mean Corpuscular Hemoglobin 31.9H, Mean Corpuscular Hemoglobin Concent 33.3, Red Cell Distribution Width 11.6, Platelet Count 242, Mean Platelet Volume 7.8, Neutrophils (%) (Auto) 77.2H, Lymphocytes ( %) (Auto) 12.6L, Monocytes (%) (Auto) 8.1, Eosinophils (%) (Auto) 1.8, Basophils (%) (Auto) 0.4, Sodium Level 140, Potassium Level 3.7, Chloride Level 105, Carbon Dioxide Level 27, Anion Gap 8, Blood Urea Nitrogen 12, Creatinine 0.9, Estimat Glomerular Filtration Rate > 60, Glucose Level 83, Calcium Level 8.5, Total Bilirubin 0.4, Aspartate Amino Transf (AST/SGOT) 43H, Alanine Aminotransferase (ALT/SGPT) 159H, Alkaline Phosphatase 112, Total Protein 6.8, Albumin 3.2L, Globulin 3.6, Albumin/Globulin Ratio 0.9L Height (Feet): 5 Height (Inches): 11.00 Weight (Pounds): 180 General Appearance: no apparent distress EENT: normal ENT inspection Neck: supple Cardiovascular: normal rate Respiratory/Chest: lungs clear Abdomen: non tender Extremities: non-tender Jm Hammond MD January 07, 2018 14:09
--- NOTE | 2018-01-11 06:58 | Discharge Summary ---
Discharge Summary Hospital Course Date of Admission January 05, 2018 at 05:28 Date of Discharge January 07, 2018 at 12:25 Admitting Diagnosis cholecystitis HPI Malvin Rossi is a 42 year old male who was admitted on January 05, 2018 at 05:28 for Cholecystitis 42 y/o male with a PMH of cholelithiasis presented to the ED after recently being discharged 2 days ago for recurrent RUQ pain and transaminitis. Patient was discharged back home and advised to follow up for elective outpatient surgery/cholecystectomy. Yesterday, patient states that he started having intractable RUQ pain that was radiating to the LUQ. He also reports nausea but no vomiting. Denies alcohol abuse, illicit drug abuse. Patient was noted to have transaminitis and elevated lipase to 300s, which was not elevated from previous hospital visit. Patient was given IVF, pain meds in the ED and an MRCP was done, pending read. Consultations GI, Dr. Otto General surgery, Dr. Poon Procedures laparoscopic cholecystectomy Hospital Course Patient was admitted and had an MRCP done, which showed Cholelithiasis. No definite evidence of choledocholithiasis. No biliary ductal dilatation. Patient' s lipase was elevated and patient was kept NPO and was started on IVF. General surgery and GI consultations were requested. Patient's lipase trended down but patient continued to have abdominal pain. Patient was medically cleared and underwent a laparoscopic cholecystectomy with no periop or postop complications. Patient was observed overnight and was hemodynamically stable. Patient was therefore discharged per general surgery and GI services and patient was given ER precautions. Discharge Medications Continued Medications: Docusate Sodium* (Colace*) 100 Mg Capsule 100 MG ORAL TWICE A DAY, #60 CAP (This prescription has been renewed) Hydrocodone Bit/Acetaminophen 5-325* ([place] 5-325*) 1 Each Tablet 1 TAB ORAL Q4H PRN for For Pain, #30 TAB 0 Refills (This prescription has been renewed) Omeprazole (Omeprazole) 40 Mg Capsule.dr 40 MG ORAL DAILY, CAP (This prescription has been renewed) Discontinued Medications: Hydrocodone Bit/Acetaminophen 5-325* ([place] 5-325*) 1 Each Tablet 1 TAB ORAL Q6H PRN for For Pain, #10 TAB 0 Refills Discharge Condition Upon Discharge: stable Discharge Disposition Patient was discharged to Home (01) Discharge Diagnoses: (1) Cholelithiasis (2) Bradycardia (3) Acute alcoholic intoxication (4) Acute alcoholic intoxication (5) Cholecystitis (6) Biliary colic (7) Gallstone pancreatitis (8) Elevated LFTs (9) Status post laparoscopic cholecystectomy Alannah Gamez NP January 11, 2018 06:58
== END 2018-01-07 12:25 | disposition home or self-care (01) | DRG 417 ==
LOC: EMR 04:58 → EDBEDREQ 05:21 → 3E 05:28 → EDBEDREQ 05:56
PROC: 0FT44ZZ Resection of Gallbladder, Percutaneous Endoscopic Approach (ICD-10-PCS; principal; 2018-01-06 09:00)
DX: K80.10 Calculus of gallbladder with chronic cholecystitis without obstruction (principal); K85.10 Biliary acute pancreatitis without necrosis or infection; R00.1 Bradycardia, unspecified
CPT/HCPCS: 36415; 74181; 80053; 83690; 85025; 94003; 94150; 99285; J2250; J2405